=== PATIENT | male | born 1955 | race Caucasian/White ===

== ENCOUNTER 2021-12-27 12:29 | Emergency (ER) | payer MEDICARE, OTHER, SELFPAY ==
--- NOTE | ~2021-12-27 | XR_ITS ---
EXAMINATION: XR foot LT min 3V DATE: 12/27/2021 12:52 INDICATION: Left foot pain and swelling. Fall. TECHNIQUE: 4 views of left foot were obtained. COMPARISON: None. FINDINGS: There is dorsiflexion of the metatarsophalangeal joints and flexion of many of the interpha langeal joints. No fracture. There is mild osteoarthritis of first metatarsophalangeal joint and some of the interphalangeal joints. There is an enthesophyte at plantar aspect of calcaneal tuberosity. IMPRESSION: 1. Mild polyarticular osteoarthritis. Reviewed, dictated and finalized at location A.
[2021-12-27 12:41] VITALS: BP 140/67; PULSE 76; RESP 18; TEMP 36.8; O2SAT 100
--- NOTE | 2021-12-27 13:01 | ED.LOWEXIN ---
HPI - Extremity Injury (Lower) General Stated Complaint: Lt Foot Pain Time Seen by Provider: 12/27/21 13:03 Source: patient and RN notes reviewed Mode of arrival: ambulatory Limitations: no limitations History of Present Illness HPI Narrative: 66-year-old female presents with concern for injury to his left foot. He reports this morning around 4:00 a.m. he tripped over something in his bathroom rolling his left ankle on hurting his left foot. He reports swelling to the dorsal foot. He reports pain is worsened with weight-bearing. He denies decreased sensation, strength, range of motion of ankle, foot, digits. MD complaint: foot injury Related Data Home Medications Medication Instructions Recorded Confirmed aspirin 81 mg chewable tablet 81 mg PO DAILY 12/27/21 12/27/21 empagliflozin 10 mg tablet 10 mg DAILY 12/27/21 12/27/21 (Jardiance) metformin 500 mg tablet 500 mg BID 12/27/21 12/27/21 metoprolol succinate 25 mg 25 mg PO DAILY 12/27/21 12/27/21 tablet,extended release 24 hr rosuvastatin 40 mg tablet 40 mg DAILY 12/27/21 12/27/21 Allergies Allergy/AdvReac Type Severity Reaction Status Date / Time Sulfa (Sulfonamide Allergy Fever Verified 12/27/21 13:02 Antibiotics) Review of Systems Review of Systems: CONSTITUTIONAL: Denies malaise, chills, sweats, or fever. SKIN: Denies rash or itching, open skin, laceration, abrasion, redness, warmth MUSCULOSKELETAL: Reports left foot pain and swelling NEUROLOGIC: Denies numbness, weakness All systems reviewed & are unremarkable except as noted in HPI and below PMFSH Comments At time of signature, agree with nursing past medical, surgical, social and family history. There is no relevant family history pertinent to the presenting complaint Exam Narrative: GENERAL: Well-appearing, well-nourished, and in no acute distress. HEAD: Normocephalic, atraumatic. EYES: PERRLA, conjunctivae clear NECK: Supple. CHEST: Speaks in full sentences. No respiratory distress. HEART: Regular rate and rhythm. Normal and equal peripheral pulses. EXTREMITIES: left ankle, foot, digits have normal strength and sensation, normal range of motion. moderate lateral dorsal edema without erythema or ecchymosis. 5/5 strength with ankle ended flexion and extension. Normal sensation with sensitivity to light touch and pain. No point tenderness. No open wounds, no skin tenting, no devitalized tissue or atrophy, no trophic changes, alignment normal, nearby joints and structures intact. Distal pulses palpable and equal bilaterally, skin warm, dry, pink. Capillary refill less than 3 seconds. SKIN: Warm, dry, no rash. NEURO: Alert and oriented x3. PSYCH: Normal mood and affect Course Course Emergency Course: Patient is aware of diagnosis, understands and agrees to treatment plan. Anticipatory guidance given. Patient agrees to follow-up as directed and is aware of reasons to seek care at the emergency department. Portions of this record may have been created with voice recognition software Level of Care: Express Care Visit Vital Signs Vital signs: Vital Signs Temperature 98.2 F 12/27/21 12:41 Pulse Rate 76 12/27/21 12:41 Respiratory Rate 18 12/27/21 12:41 Blood Pressure 140/67 12/27/21 12:41 Pulse Oximetry 100 12/27/21 12:41 Oxygen Delivery Room Air 12/27/21 12:41 Temperature 98.2 F 12/27/21 12:41 Pulse Rate 76 12/27/21 12:41 Respiratory Rate 18 12/27/21 12:41 Blood Pressure 140/67 12/27/21 12:41 Pulse Oximetry 100 12/27/21 12:41 Oxygen Delivery Room Air 12/27/21 12:41 Reviewed. MDM - Extremity Injury (Lower) MDM Narrative Medical decision making narrative: Patients injury and pain is consistent with musculoskeletal etiology. No signs of neurological or vascular compromise on exam. Compartments and tissues are soft without signs of compartment syndrome. Pain is felt appropriate for further evaluation on an outpatient basis. Imaging Data My im
== END 2021-12-27 13:13 | disposition home or self-care (01) ==
PROVIDERS: Emergency Provider Nurse Practitioner; PCP Internal Medicine
DX: S93.602A Unspecified sprain of left foot, initial encounter (principal); X50.9XXA Other and unspecified overexertion or strenuous movements or postures, initial encounter; E11.9 Type 2 diabetes mellitus without complications; Z79.82 Long term (current) use of aspirin; Z95.1 Presence of aortocoronary bypass graft; Z79.84 Long term (current) use of oral hypoglycemic drugs
CPT/HCPCS: 73630; 99213; G0463

== ENCOUNTER 2023-01-26 11:22 | Emergency (ER) | payer MEDICARE, OTHER, SELFPAY ==
[2023-01-26 12:28] VITALS: BP 130/64; PULSE 81; RESP 16; TEMP 35.9; O2SAT 98
--- NOTE | 2023-01-26 12:45 | ED.GENADULT ---
HPI - General Adult General Chief complaint: Upper Respiratory Infection Stated complaint: cough,congestion Time Seen by Provider: 01/26/23 12:45 Source: patient Mode of arrival: ambulatory Limitations: no limitations History of Present Illness HPI narrative: 59-year-old male patient presents to [facility] with complaints of cough congestion past 5 days. Denies fevers, body aches or chills. Denies any ear pain or sore throat. Denies chest pain or shortness of breath. Denies abdominal pain, nausea, vomiting or diarrhea. Denies any history of lung disease but states has had a cardiac catheterization in the past. Patient states he came in today to be assessed because he was concerned his symptoms have been going on for 5 days Related Data Home Medications Medication Instructions Recorded Confirmed aspirin 81 mg chewable tablet 81 mg PO DAILY 12/27/21 01/26/23 metformin 500 mg tablet 1,000 mg BID 12/27/21 01/26/23 metoprolol succinate 25 mg 25 mg PO DAILY 12/27/21 01/26/23 tablet,extended release 24 hr rosuvastatin 40 mg tablet 40 mg DAILY 12/27/21 01/26/23 dapagliflozin propanediol 10 mg 10 mg PO DAILY 01/26/23 01/26/23 tablet (Farxiga) nitroglycerin 0.4 mg sublingual 0.4 mg sublingual PRN PRN Chest 01/26/23 01/26/23 tablet Pain Allergies Allergy/AdvReac Type Severity Reaction Status Date / Time Sulfa (Sulfonamide AdvReac Intermediate Fever Verified 01/26/23 12:33 Antibiotics) Review of Systems Review of Systems: CONSTITUTIONAL: Denies fever, chills, or sweats. EYES: Denies visual changes, redness, or discharge. ENT: positiverhinorrhea, congestion, denies sore throat, or otalgia. CARDIOVASCULAR: Denies chest pain, palpitations, or edema. RESPIRATORY: positive cough or dyspnea. GASTROINTESTINAL: Denies abdominal pain, nausea, vomiting, or diarrhea. GENITOURINARY: Denies dysuria or hematuria. SKIN: Denies rash or itching. MUSCULOSKELETAL: Denies back pain, joint pain, or myalgia. NEUROLOGIC: positive headache, denies numbness, or weakness. PSYCHIATRIC: Denies anxiety or depression. [facility] Past Medical History Medical History (Updated 01/26/23 @ 12:59 by MARY Winslow) Hypertension Surgical History Surgical History (Updated 01/26/23 @ 12:59 by MARY Winslow) History of heart bypass surgery Exam Narrative: GENERAL: Well-appearing, well-nourished, and in no acute distress. HEAD: Normocephalic, atraumatic. EYES: PERRLA and EOMI. ENT: Nares with erythema edema noted bilaterally, no rhinorrhea or epistaxis. Mucous membranes moist. bilateral TMs are clear no erythema foreign bodies the canal. Posterior pharynx with no erythema or exudates present. NECK: Supple. No lymphadenopathy CHEST: Clear to auscultation. No respiratory distress. HEART: Regular rate and rhythm. No murmur heard. Normal peripheral pulses. ABDOMEN: Soft, nontender, nondistended, normal active bowel sounds. EXTREMITIES: Normal range of motion. No edema. SKIN: Warm, dry, no rash. NEURO: No focal deficits. Alert and oriented x3. Course Course Emergency Course: Portions of this chart was completed with voice recognition software Level of Care: Express Care Visit Vital Signs Vital signs: Vital Signs Temperature 35.9 C L 01/26/23 12:28 Pulse Rate 81 01/26/23 12:28 Respiratory Rate 16 01/26/23 12:28 Blood Pressure 130/64 01/26/23 12:28 Pulse Oximetry 98 01/26/23 12:28 Oxygen Delivery Room Air 01/26/23 12:28 Temperature 35.9 C L 01/26/23 12:28 Pulse Rate 81 01/26/23 12:28 Respiratory Rate 16 01/26/23 12:28 Blood Pressure 130/64 01/26/23 12:28 Pulse Oximetry 98 01/26/23 12:28 Oxygen Delivery Room Air 01/26/23 12:28 Medical Decision Making MDM Narrative Medical decision making narrative: Discussed with patient that I do believe he most likely has a mild viral URI. Discussed with patient that he has already tested himself at home for COVID a
== END 2023-01-26 13:00 | disposition home or self-care (01) ==
PROVIDERS: Emergency Provider Nurse Practitioner Family; PCP Internal Medicine
DX: J06.9 Acute upper respiratory infection, unspecified (principal); I10 Essential (primary) hypertension; Z79.82 Long term (current) use of aspirin
CPT/HCPCS: 99213; G0463

== ENCOUNTER 2025-02-08 00:55 | Day surgery (SDC) | payer MEDICARE, OTHER, SELFPAY ==
[2025-01-20 10:02] VITALS: BMI 34.4
--- OUTSIDE RECORDS SUMMARY | 2025-02-08 00:58 | XMS_ITS | Encounter Summary ---
Author Organization [facility] Address [address] [place] [address] Care Team Providers Care Patrol Police Lieutenant Name Role Phone Osmin Mares MD Primary Care Provider [phone] Encounter Details Date Type Department Care Team (Latest Contact Info) Description 02/22/2021 Calypso Wirelesst Message Enc [facility] Medical [facility] - [address] [place] [address] Sterling Jauregui MD Tadalafil 5 mg prescription Social History Tobacco Use Types Packs/Day Years Used Date Smoking Tobacco: Former Pipe Q uit: 1981 Smokeless Tobacco: Never Comments:counseled by Dr Lyn macdonald Alcohol Use Standard Drinks/Week Comments Yes 1 (1 standard drink = 0.6 oz pur e alcohol) Overall Financial Resource Strain (CARDIA) Answe r Date Recorded How hard is it for you to pa y for the very basics like food, housing, medical care, and heating? Not very hard 09/20/2020 PHQ-2 Answer Date Recorded PHQ-2 Score - If the patient scores above 3, please move on to questions 3-9 0 02/21/2021 PRAPARE - Transportation Answer Date Re corded In the past 12 months, has l ack of transportation kept you from medical appointments or from getting medications? No 09/07 In the past 12 months, has l ack of transportation kept you from meetings, work, or from getting things needed for daily living? No 09/20/2020 Sex and Gender Information Value Date Recorded Sex Assigned at Male 07/21/2024 9:48 AM CDT Legal Sex Male 5:03 PM CDT Gender Identity Male 07/21/2024 9:48 AM CDT Sexual Orientation Straight 07/21/2024 9: 48 AM CDT COVID-19 Exposure Response Date Recorded In the last month, have you been in contact with someone who was confirmed or suspected to have Coronavirus / COVID-19? No / Unsure 02/20/2021 12:57 PM DIAMOND SANDER documented as of this encounter Functional Status * RETIRED Are you deaf or do you have serious difficulty hearing Answer Date of Assessment Author Status No 09/20/2020 3:27 PM CDT Activ e * RETIRED Are you blind or do you have serious difficulty seeing, even when wearing glasses? Answer Date of Assessment Author Status No 09/20/2020 3:27 PM CDT Activ e * Do you have serious difficulty walking or climbing stairs? Answer Date of Assessment Author Status No 09/20/2020 3:27 PM CDT Matt Castañeda RN Active * Do you have difficulty dressing or bathing? Answer Date of Assessment Author Status No 09/20/2020 3:27 PM CDT Matt Castañeda RN Active * Because of a physical, mental, or emotional condition, do you have difficulty doing errands alone such as visiting a doctor's office or shopping? Answer Date of Assessment Author Status No 09/20/2020 3:27 PM LIBBYT Matt Castañeda RN Active documented as of this encounter Mental Status * Because of a physical, mental, or emotional condition, do you have serious difficulty concentrating, remembering, or making decisions? Answer Entry Date Author Status No 09/20/2020 3:27 PM CDT Matt Castañeda RN Active documented in this encounter Plan of Treatment Upcoming Encounters Date Type Department Care Team (Late st Contact Info) Description 07/19/2025 10:20 AM CDT Office Visit [facility] Medical Group Multispecialty Care - [place] [address] [address] [address] [place] [address] [place] [address] [place] [address] [address] [place] [address] documented as of this encounter Visit Diagnoses Not on filedocumented in this encounter Additional Health Concerns Assessment Noted Time PHQ-9 Depression Total Score: 0 02/22/20 10:05 AM DIAMOND SANDER documented as of this encounter Care Teams Patrol Police Lieutenant Relationship Specialty Start Date End Date Osmin Mares MD [address] [address] PCP - General INTERNAL MEDICINE 10/30/20 documented as of this encounter
--- OUTSIDE RECORDS SUMMARY | 2025-02-08 00:58 | XMS_ITS | Encounter Summary ---
Author Organization [facility] Address [address] [place] [address] Care Team Providers Care Thin Film Technician Name Role Phone Osmin Mares MD Primary Care Provider [phone] Encounter Details Date Type Department Care Team (Latest Contact Info) Description 12/09/2024 Ping4t Message Enc [facility] Medical Group Multispecialty Care - [place] [address] [address] [address] [place] [address] Osmin Mares MD [address] [place] [address] [address] [place] [address] Flu Shot Received Social History Tobacco Use Types Packs/Day Years Used Date Smoking Tobacco: Former Pipe Q uit: 03/10/1981 Smokeless Tobacco: Never Comments:Nominal use for tas te not inhaled; counseled by Dr Mares. Alcohol Use Standard Drinks/Week Comments Not Currently 1 (1 standard drink = 0.6 oz pur e alcohol) Overall Financial Resource Strain (CARDIA) Answe r Date Recorded How hard is it for you to pa y for the very basics like food, housing, medical care, and heating? Not very hard 09/20/2020 PHQ-2 Answer Date Recorded Patient Health Questionnaire-2 Score 0 07/21/2024 PRAPARE - Transportation Answer Date Re corded [...] Orientation Straight 07/21/2024 9: 48 AM CDT documented as of this encounter Functional Status [...] 3:27 PM LIBBYT Matt Castañeda RN Active * Because of a physical, mental, or emotional condition, do you have difficulty doing errands alone such as visiting a doctor's office or shopping? Answer Date of Assessment Author Status No 09/20/2020 3:27 PM CDT Caitlin Castañeda RN Active documented as of this encounter Mental Status * Because of a physical, mental, or emotional condition, do you have serious difficulty concentrating, remembering, or making decisions? Answer Entry Date Author Status No 09/20/2020 3:27 PM LIBBYT Matt Castañeda RN Active documented in this encounter Plan of Treatment Upcoming Encounters Date Type Department Care Team (Late st Contact Info) Description 07/19/2025 10:20 AM CDT Office Visit [facility] Medical Group Multispecialty Care - [place] [address] [address] [address] [place] [address] Osmin Mares MD [address] [place] [address] documented as of this encounter Visit Diagnoses Not on filedocumented in this encounter Additional Health Concerns Assessment Noted Time PHQ-9 Depression Total Score: 3 07/22/19 25 10:14 AM CDT documented as of this encounter Care Teams Thin Film Technician Relationship Specialty Start Date End Date Osmin Mares MD [address] [address] PCP - General INTERNAL MEDICINE 10/30/20 documented as of this encounter
--- OUTSIDE RECORDS SUMMARY | 2025-02-08 00:58 | XMS_ITS | Encounter Summary ---
Author Organization [facility] Address [address] [place] [address] Care Team Providers Care Collator Name Role Phone Magan Canada MD Primary Care Provider [phone] Osmin Mares MD Primary Care Provider [phone] Encounter Details Date Type Department Care Team (Late st Contact Info) Description 09/07/2020 Replise Message Enc [facility] [address] David Bennett MD,PHD RE: Medication Questions Social History Tobacco Use Types Packs/Day Years Used Date Smoking Tobacco: Former Pipe Q uit: 1982 Smokeless Tobacco: Never Alcohol Use Standard Drinks/Week Comments Yes 1 (1 standard drink = 0.6 oz pur e alcohol) Sex and Gender Information Value Date Recorded [...] have Coronavirus / COVID-19? No / Unsure 09/05/2020 1:02 PM CDT documented as of this encounter Progress Notes * David Bennett MD,PHD - 09/08/2020 10:54 AM CDT Stop the pioglitazone and start Jardiance at 10 mg daily Agree with holding morning doses metformin prior cath * Katy Marinelli RN - 09/07/2020 1:54 PM CDT Please advise. I have a call out to the PCP and we are working on trying to get the actos switched to a different medication. documented in this encounter Plan of Treatment Upcoming Encounters Date Type Department Care Team (Late st Contact Info) Description 07/19/2025 10:20 AM CDT Office Visit [facility] Medical Group Multispecialty Care - [address] [address] [address] [address] [place] [address] Osmin Mares MD [address] [place] [id number] documented as of this encounter Visit Diagnoses Not on filedocumented in this encounter Care Teams Collator Relationship Specialty Start Date End Date Magan Canada MD [facility] [address] [phone] PCP - General INTERNAL MEDICINE 08/29/20 10/29/20 Osmin Mares MD [address] [place] [address] PCP - General INTERNAL MEDICINE 10/30/20 documented as of this encounter
--- OUTSIDE RECORDS SUMMARY | 2025-02-08 00:58 | XMS_ITS | Encounter Summary ---
Author Organization [facility] Address [address] [place] [address] Care Team Providers Care Retail Shift Supervisor Name Role Phone Osmin Mares MD Primary Care Provider [phone] Encounter Details Date Type Department Care Team (Latest Contact Info) Description 10/01/2024 MyChart Message Enc [facility] Medical Group Multispecialty Care - [place] [address] [address] [address] [place] [address] Osmin Mares MD [address] [place] [address] [address] [place] [address] Recent Issues 1 of 2 Social History Tobacco Use Types Packs/Day Years [...] Description 07/19/2025 10:20 AM CDT Office Visit [facility] Medical [facility] Multispecialty Care - [place] [address] [address] [address] [place] [address] Osmin Mares MD [address] [place] [address] [address] [place] [address] documented as of this encounter Visit Diagnoses Not on filedocumented in this encounter Additional Health Concerns Assessment Noted Time PHQ-9 Depression Total Score: 3 07/22/19 25 10:14 AM CDT documented as of this encounter Care Teams Retail Shift Supervisor Relationship Specialty Start Date End Date Osmin Mares MD [address] [address] PCP - General INTERNAL MEDICINE 10/30/20 documented as of this encounter
--- OUTSIDE RECORDS SUMMARY | 2025-02-08 00:58 | XMS_ITS | Encounter Summary ---
Author Organization [facility] Address [address] [place] [address] Care Team Providers Care Operations Manager Assistant Name Role Phone Osmin Mares MD Primary Care Provider [phone] Encounter Details Date Type Department Care Team (Late st Contact Info) Description 01/30/[address] [employer] Message Enc [facility] Medical Group Multispecialty Care - [place] [address] [address] [address] [place] [address] Osmin Mares MD [address] [place] [address] [address] [place] [address] Jardiance Social History Tobacco Use Types Packs/Day Years [...] please move on to questions 3-9 0 2021 PRAPARE - Transportation Answer Date Re corded [...] have Coronavirus / COVID-19? No / Unsure 01/29/2021 6:38 PM KARATE INSTRUCTOR documented as of this encounter Functional Status [...] Description 07/19/2025 10:20 AM CDT Office Visit [facility] Medical Group Multispecialty Care - [address] [address] [address] [place] [address] Osmin Mares MD [address] [place] [address] documented as of this encounter Visit Diagnoses Not on filedocumented in this encounter Additional Health Concerns Assessment Noted Time PHQ-9 Depression Total Score: 0 01/20/20 21 1:12 PM KARATE INSTRUCTOR documented as of this encounter Care Teams Operations Manager Assistant Relationship Specialty Start Date End Date Osmin Mares MD [address] [address] PCP - General INTERNAL MEDICINE 10/30/20 documented as of this encounter
--- OUTSIDE RECORDS SUMMARY | 2025-02-08 00:58 | XMS_ITS | Encounter Summary ---
Author Organization [facility] Address [address] [place] [address] Care Team Providers Care Avionics Supervisor Name Role Phone Osmin Mares MD Primary Care Provider [phone] Encounter Details Date Type Department Care Team (Late st Contact Info) Description 08/10/2024 MyChart Message Enc [facility] Medical Group Multispecialty Care - [place] [address] [address] [address] [place] [address] Osmin Mares MD [address] [place] [address] [address] [place] [address] Vaccinations Social History Tobacco Use Types Packs/Day Years [...] 07/19/2025 10:20 AM CDT Office Visit [facility] Medical Group Multispecialty Care - [place] [address] [address] [address] [place] [address] Osmin Mares MD [address] [place] [address] documented as of this encounter Visit Diagnoses Not on filedocumented in this encounter Additional Health Concerns Assessment Noted Time PHQ-9 Depression Total Score: 3 07/22/19 25 10:14 AM CDT documented as of this encounter Care Teams Avionics Supervisor Relationship Specialty Start Date End Date Osmin Mares MD [address] [address] PCP - General INTERNAL MEDICINE 10/30/20 documented as of this encounter
--- OUTSIDE RECORDS SUMMARY | 2025-02-08 00:58 | XMS_ITS | Encounter Summary ---
Author Organization [facility] Address [address] [place] [address] Care Team Providers Care Application Packaging Specialist Name Role Phone Magan Canada MD Primary Care Provider [phone] Osmin Mares MD Primary Care Provider [phone] Encounter Details Date Type Department Care Team (Late Contact Info) Description 09/14/2020 Abstract [facility] [address] Roger Lui MA Social History Tobacco Use Types Packs/Day Years [...] have Coronavirus / COVID-19? No / Unsure 09/16/2020 12:02 PM CDT documented as of this encounter Plan of Treatment Upcoming Encounters Date Type Department Care Team (Late Contact Info) Description 07/19/2025 10:20 AM CDT Office Visit [facility] Multispecialty Care - [address] [place] [address] Osmin Mares MD [address] [facility] [address] [place] [address] documented as of this encounter Procedures Procedure Name Priority Date/Time Associated Diagnosis Comments COMPREHENSIVE METABOLIC PANEL Routine 08/02/2020 LIPID PANEL Routine 08/02/2020 BASIC METABOLIC PANEL Routine 05/01/2020 COMPREHENSIVE METABOLIC PANEL Routine 02/02/2020 HEMOGLOBIN, GLYCOSYLATED Routine 08/05/2019 LIPID PANEL Routine 06/18/2018 LIPID PANEL Routine 11/13/2017 CBC (OUTSIDE LAB) Routine 09/30/2017 documented in this encounter Results * (ABNORMAL) COMPREHENSIVE METABOLIC PANEL (08/02/2020) SODIUM S/P/B 139 POTASSIUM S/P/B 4.2 CO2 27 CHLORIDE S/P/B 103 GLUCOSE 129 mg/dL CALCIUM S/P/B 9.5 BUN 11 CREATININE S/P/B 0.70 0.7 - 1.3 EGFR AFR. AMER. 145(A) <=90 EGFR NON-AFR. AMER. 120(A) <=90 ALKALINE PHOSPHATASE S/P/B 64 ALT 19 AST 16 BILIRUBIN TOTAL S/P/B 0.60 ALBUMIN S/P/B 4.30 3.5 - 5.0 TOTAL PROTEIN S/P/B 7.0 08/02/2020 us [facility] Abstract LABORATORY Final Result * LIPID PANEL (08/02/2020) CHOLESTEROL 231 HDL 50 TRIGLYCERIDES 120 LDL (CALCULATED) 157 08/02/2020 us Doc [facility] Abstract LABORATORY Final Result * BASIC METABOLIC PANEL (05/01/2020) SODIUM S/P/B Comment:error,deleted 05/01/2020 us [facility] Abstract LABORATORY Edited Resul t - Final * (ABNORMAL) COMPREHENSIVE METABOLIC PANEL (02/02/2020) SODIUM S/P/B 138 POTASSIUM S/P/B 4.3 CO2 26 CHLORIDE S/P/B 101 GLUCOSE 154 mg/dL CALCIUM S/P/B 9.30 BUN 11.0 CREATININE S/P/B 0.70 0.7 - 1.3 EGFR AFR. AMER. 145(A) <=90 EGFR NON-AFR. AMER. 120(A) <=90 ALKALINE PHOSPHATASE S/P/B 69 ALT 18 AST 20 BILIRUBIN TOTAL S/P/B 0.60 ALBUMIN S/P/B 4.50 3.5 - 5.0 TOTAL PROTEIN S/P/B 7.20 02/02/2020 us [employer] [facility] Abstract LABORATORY Final Result * HEMOGLOBIN, GLYCOSYLATED (08/05/2019) HGB A1C 6.80 % 08/05/2019 us [facility] Abstract LABORATORY Edited Resul t - Final * LIPID PANEL (06/18/2018) CHOLESTEROL 121 HDL 47 TRIGLYCERIDES 116 LDL (CALCULATED) 51 06/18/2018 [employer] [facility] Abstract LABORATORY Final Result * LIPID PANEL (11/13/2017) CHOLESTEROL 143 HDL 46 TRIGLYCERIDES 84 LDL (CALCULATED) 80 11/13/2017 us Doc [facility] Abstract LABORATORY Final Result * CBC (OUTSIDE LAB) (09/30/2017) WBC 8.8 HGB 15.0 HCT 44.50 PLT 238 09/30/2017 us Doc [facility] Abstract LAB-OUTSIDE/ABSTRACTED Final Result documented in this encounter Visit Diagnoses Not on filedocumented in this encounter Care Teams Application Packaging Specialist Relationship Specialty Start Date End Date Magan Canada MD [address] [id number] PCP - General INTERNAL MEDICINE 08/29/20 10/29/20 Osmin Mares MD [address] [address] PCP - General INTERNAL MEDICINE 10/30/20 documented as of this encounter
--- OUTSIDE RECORDS SUMMARY | 2025-02-08 00:58 | XMS_ITS | Encounter Summary ---
Author Organization [facility] Address [address] [place] [address] Care Team Providers Care Television Engineering Teacher Name Role Phone Osmin Mares MD Primary Care Provider [phone] Encounter Details Date Type Department Care Team (Latest Contact Info) Description 02/12/2021 Daily Dealyt Message Enc [facility] Medical Group Multispecialty Care - [place] [address] [address] [place] [address] [place] [address] [place] [address] [address] [place] [address] [employer] Ultra [employer] Results Social History Tobacco Use Types Packs/Day Years [...] have Coronavirus / COVID-19? No / Unsure 02/13/2021 11:01 AM COMPLIANCE LEAD documented as of this encounter Functional Status [...] Description 07/19/2025 10:20 AM CDT Office Visit [facility] Multispecialty Care - [place] [address] [address] [place] [address] Osmin Mares MD [address] [place] [address] documented as of this encounter Visit Diagnoses Not on filedocumented in this encounter Additional Health Concerns Assessment Noted Time PHQ-9 Depression Total Score: 0 01/20/20 21 1:12 PM COMPLIANCE LEAD documented as of this encounter Care Teams Television Engineering Teacher Relationship Specialty Start Date End Date Osmin Mares MD [address] [address] PCP - General INTERNAL MEDICINE 10/30/20 documented as of this encounter
--- OUTSIDE RECORDS SUMMARY | 2025-02-08 00:58 | XMS_ITS | Encounter Summary ---
Author Organization [facility] Address [address] [place] [address] Care Team Providers Care Hydraulic Billet Maker Name Role Phone Osmin Mares MD Primary Care Provider [phone] Encounter Details Date Type Department Care Team (Latest Contact Info) Description 01/21/2022 Transpondt Message Enc [facility] [id number] [place] [address] David Bennett MD,PHD Cardiac MRI at [facility] Cancelled Social History Tobacco Use Types Packs/Day Years Used Date Smoking Tobacco: Former Pipe Q uit: 03/10/1981 Smokeless Tobacco: Never Comments:Nominal use for tas te not inhaled Alcohol Use Standard Drinks/Week Comments Yes 1 [...] please move on to questions 3-9 0 08/17/2021 PRAPARE - Transportation Answer Date Re corded [...] PM CDT Matt Castañeda RN Active documented as of this encounter Mental Status * Because of a physical, mental, or emotional condition, do you have serious difficulty concentrating, remembering, or making decisions? Answer Entry Date Author Status No 09/20/2020 3:27 PM LIBBYT Matt Castañeda RN Active documented in this encounter Progress Notes * Katy Marinelli RN - 01/21/2022 11:45 AM CST . ORATE ADMINISTRATOR documented in this encounter Plan of Treatment Upcoming Encounters Date Type Department Care Team (Late st Contact Info) Description 07/19/2025 10:20 AM CDT Office Visit [facility] Medical [facility] Multispecialty Care - [place] [address] [address] [place], [place] [id number] Osmin Mares MD [address] [place] [address] [address] [place], [place] [id number] documented as of this encounter Visit Diagnoses Not on filedocumented in this encounter Additional Health Concerns Assessment Noted Time PHQ-9 Depression Total Score: 0 05/31/19 22 12:27 PM CDT documented as of this encounter Care Teams Hydraulic Billet Maker Relationship Specialty Start Date End Date Osmin Mares MD [address] [address] PCP - General INTERNAL MEDICINE 10/30/20 documented as of this encounter
--- OUTSIDE RECORDS SUMMARY | 2025-02-08 00:58 | XMS_ITS | Encounter Summary ---
Author Organization [facility] Address [address] [place] [address] Care Team Providers Care Cigarette Book Maker Name Role Phone Osmin Mares MD Primary Care Provider [phone] Encounter Details Date Type Department Care Team (Latest Contact Info) Description 01/16/2025 [employer] Message Enc [facility] Medical [facility] Multispecialty Care - [place] [address] [address] [place] [address] Osmin Mares MD [address] [place] [address] [address] [place] [address] Updated Information Covid Vaccination Social History Tobacco Use Types Packs/Day Years [...] PM CDT Matt Castañeda RN Active * Calculated C-SSRS Risk Score (Lifetime/Recent) Answer Date of Assessment Author Status No Risk Indicated 2025 5:59 PM Osmin Chavarria MD Active * Given Suicide Severity Rating Scale (Screener/Recent Self-Report) Question Answer Date of Assessment Author Status 1. Wish to be (Past 1 Month) No 2025 5:59 PM Osmin Chavarria MD Active 2. Non-Specific Active Suicidal Thoughts (Past 1 Month) No 2025 5:59 PM Osmin Chavarria MD Active 6. Suicidal Behavior (Lifetime) No 2025 5:59 PM Osmin Chavarria MD Active documented as of this encounter Mental [...] Description 07/19/2025 10:20 AM CDT Office Visit [facility] Medical [facility] Multispecialty [facility] [place] [address] [address] [place] [address] Osmin Mares MD [address] [place] [address] documented as of this encounter Visit Diagnoses Not on filedocumented in this encounter Additional Health Concerns Assessment Noted Time PHQ-9 Depression Total Score: 3 07/22/19 25 10:14 AM CDT documented as of this encounter Care Teams Cigarette Book Maker Relationship Specialty Start Date End Date Osmin Mares MD [address] [place] [address] PCP - General INTERNAL MEDICINE 10/30/20 documented as of this encounter
--- OUTSIDE RECORDS SUMMARY | 2025-02-08 00:58 | XMS_ITS | Encounter Summary ---
Author Organization [facility] Address [address] [place] [address] Care Team Providers Care Software Performance Engineer Name Role Phone Osmin Mares MD Primary Care Provider [phone] Encounter Details Date Type Department Care Team (Late st Contact Info) Description 02/26/2022 [employer] Message Enc [facility] [address] [place] [address] David Bennett MD,PHD Cardiac MRI Social History Tobacco Use Types Packs/Day Years [...] Exposure Response Date Recorded In the last 10 days, have peg thomson been in contact with someone who was confirmed or suspected to have Coronavirus/COVID-19? No / Unsure 02/26/2022 9:39 AM MACHINE STAPLER documented as of this encounter Functional Status [...] documented in this encounter Progress Notes * David Bennett MD,PHD - 03/12/2022 7:12 PM CST Lets still see the patient to see how he is doing clinically. INE STAPLER * Katy Marinelli RN - 03/12/2022 8:55 AM CST Please advise INE STAPLER * David Bennett MD,PHD - 02/26/2022 2:38 PM CST Try and repeat the scan with 2 mg of lorazepam as needed INE STAPLER * Katy Marinelli RN - 02/26/2022 1:47 PM CST Please advise. INE STAPLER documented in this encounter Plan of Treatment Upcoming Encounters Date Type Department Care Team (Late st Contact Info) Description 07/19/2025 10:20 AM CDT Office Visit [facility] Medical Group Multispecialty [facility] [place] [address] [address] [place] [address] Osmin Mares MD [address] [place] [address] documented as of this encounter Visit Diagnoses Not on filedocumented in this encounter Additional Health Concerns Assessment Noted Time PHQ-9 Depression Total Score: 0 05/31/19 22 12:27 PM CDT documented as of this encounter Care Teams Software Performance Engineer Relationship Specialty Start Date End Date Osmin Mares MD [address] [place] [address] PCP - General INTERNAL MEDICINE 10/30/20 documented as of this encounter
--- OUTSIDE RECORDS SUMMARY | 2025-02-08 00:58 | XMS_ITS | Clinical Summary ---
Author Organization [facility] Address [address] [place] [address] Care Team Providers Care Laboratory Aide Name Role Phone Osmin Mares MD Primary Care Provider [phone] Allergies Active Allergy Reactions Criticality Noted Date Comments Albuterol Sulfate Diarrhea 09/22/2023 Sulfa Antibiotics Nausea and Vomiting 1 Medications aspirin 81 MG chewable tabletIndications: Hx of CABG Chew 1 tablet (81 mg total) by mouth daily. 30 tablet 2 Active nitroglycerin (NITROSTAT) 0.4 MG SL tabletIndications: MCKNIGHT (dyspnea on exertion),Chest discomfort Place 1 tablet (0.4 mg total) under the tongue every 5 (five) minutes as needed for Chest Pain. If using 3rd dose, contact 911 for medical emergency. Maximum of 3 doses. 25 tablet 3 Active ENTRESTO 24-26 MG tablet Take 1 tablet by mouth 2 (two) times daily. 4 Active Coenzyme Q10 (COQ-10) 100 MG Cap 1 Active calcium carbonate (TUMS) 500 MG chewable tablet 1 tablet (500 mg total). 4 Active rosuvastatin (CRESTOR) 20 MG tabletIndications: Coronary artery disease involving [place] coronary artery of [place] heart with other form of angina pectoris,Mixed hyperlipidemia Take 1 tablet (20 mg total) by mouth nightly at bedtime. at bedtime 90 tablet 1 5 Active metoprolol succinate ER (TOPROL-XL) 25 MG 24 hr tabletIndications: Coronary artery disease involving [place] coronary artery of [place] heart with other form of angina pectoris,Hx of CABG Take 1 tablet (25 mg total) by mouth daily. 90 tablet 1 5 Active evolocumab (REPATHA) 140 MG/ML injection (SYRINGE)Indicatio ns:Drug therapy Inject 1 mL (140 mg total) into the skin every 14 (fourteen) days. 2 mL 11 5 Active metFORMIN (GLUCOPHAGE) 500 MG tabletIndications: Type 2 diabetes mellitus with other circulatory complications (CMS/HCC HHS/HCC) Take 2 tablets (1,000 mg total) by mouth 2 (two) times daily with meals. 360 tablet 1 5 Active dapagliflozin (FARXIGA) 10 MG tabletIndications: Type 2 diabetes mellitus with other circulatory complications (CMS/HCC HHS/HCC) Take 1 tablet (10 mg total) by mouth daily. 90 tablet 1 5 Active rosuvastatin (CRESTOR) 40 MG tabletIndications: Coronary artery disease involving [place] coronary artery of [place] heart with other form of angina pectoris,Mixed hyperlipidemia Take 1 tablet (40 mg total) by mouth nightly at bedtime. at bedtime 90 tablet 1 5 01/20/20 25 Discontin ued(Reord er) metoprolol succinate ER (TOPROL-XL) 25 MG 24 hr tabletIndications: Coronary artery disease involving [place] coronary artery of [place] heart with other form of angina pectoris,Hx of CABG Take 1 tablet (25 mg total) by mouth daily. 90 tablet 1 5 01/20/20 25 Discontin ued(Reord er) metFORMIN (GLUCOPHAGE) 500 MG tabletIndications: Type 2 diabetes mellitus with other circulatory complications (CMS/HCC HHS/HCC) Take 2 tablets (1,000 mg total) by mouth 2 (two) times daily with meals. 360 tablet 1 5 01/20/20 25 Discontin ued(Reord er) FARXIGA 10 MG tabletIndications: Type 2 diabetes mellitus with other circulatory complications (CMS/HCC HHS/HCC) TAKE 1 TABLET BY MOUTH DAILY 90 tablet 1 5 01/20/20 25 Discontin ued(Reord er) Active Problems Problem Noted Date Diagnosed Date Morbid (severe) obesity due to excess calories 0 11/19/2022 Tachycardia 07/22/2021 Chest discomfort 07/22/2021 Anemia, unspecified type 07/22/2021 MCKNIGHT (dyspnea on exertion) 07/22/2021 Nephrolithiasis 07/22/2021 S/P CABG (coronary artery bypass graft) 10/31/19 Mixed hyperlipidemia 10/30/2020 Type 2 diabetes mellitus wit h other circulatory complications 10/30/2020 JUJU (obstructive sleep apnea) 10/30/2020 Class 1 obesity due to exces s calories without serious comorbidity in adult 10/30/2020 Coronary artery disease invo lving [place] coronary artery of [place] heart with other form of angina pectoris 09/20/2020 Encounters Date Type Department Care Team Description 01/31/2025 Telephone [place] [address] [place] [address] [place] [address] Osmin Mares MD Referral 01/31/2025 MyChart Message Enc [place] [address] [place] [address] Osmin Mares MD Endocrinology Referral 01/20/2025 11:10 AM DRIVING TEACHER - 01/20/2025 11:59 PM DRIVING TEACHER Hospital Encounter [facility] [address] [place] [address] Osmin Mares MD Discharge Disposition: Home or Self Care (Routine Discharge) 01/20/2025 Travel 01/20/2025 MyChart Message Enc [place] [address] [place] [address] Osmin Mares MD My Chart Medical and Family History 2025 10:20 AM DRIVING TEACHER Office Visit [place] [address] [place] [address] [place] [address] Osmin Mares MD Follow Up; Coronary Artery Disease; Diabetes; Hypertension; Hyperlipidemia; Obstructive Sleep Apnea ; Obesity 2025 MyChart Message Enc [place] [address] [place] [address] Osmin Mares MD Collator and Urologist Information [facility]25 [facility]phone [facility] [address] [place] [address] Osmin Mares MD Follow Up Call 2025 Travel 01/16/2025 MyChart Message Enc [facility] [address] [facility] [address] [place] [address] Osmin Mares MD Updated Information Covid Vaccination 12/10/2024 MyChart Message Enc [place] [address] [facility] [address] [place] [address] Osmin Mares MD Colonoscopy Scheduling 12/09/2024 MyChart Message Enc [place] [address] [facility] [address] [place] [address] Osmin Mares MD Flu Shot Received 11/11/2024 10:00 AM CDT Laboratory Only [address] [address] Guillermo Sykes MD 11/11/2024 Travel 11/10/2024 Telephone [facility] [address] [facility], [address] [place] [phone] Kavon Valerio MD Appointment Request from Last 3 Months Immunizations Immunization Administration Dates Next Due Abrysvo Respiratory Syncytia l Virus (RSV) 0.5 mL, PF 08/02/2023 Dtap (Generic) 04/18/2014 Fluad influenza vaccine, Tim drivalent (aIIV4), Inactivated, adjuvanted, preservative free, 0.5 mL,IM use 01/08/2023 Flucelvax 2 YRS+ (Multi-Dose Vial) 01/28/2018 Fluzone High Dose - >Age 65 (Prefilled Syringe) 12/16/2020 Influenza Adult (Generic) 12/08/2024,,12/16/2020,2019,12/02/2018,01/28/2018 MODERNA COVID-19 BIVALENT (1 2+), MRNA, LNP-S, PF 12/23/2024 PFIZER COVID-19 (NGO CAP), MRNA, LNP-S, PF, 30 MCG/0.3 ML PAM-SUCROSE, IM 06/29/2021 PFIZER COVID-19 (ORIGINAL FORMULATION, PURPLE CAP) mRNA, LNP-S, PF, 30 MCG/0.3 ML DOSE 07/21/2024,12/04/2020,04/28/2020,2020 PFIZER COVID-19 BIVALENT (12 +) mRNA, LNP-S, PF, 30 MCG/0.3 ML DOSE 12/26/2023,07/11/2023,12/14/2022 Pneumococcal (Prevnar 20) 06/02/2022 Pneumovax 02/02/2020 Tdap (Generic) 08/10/2024,04/18/2014 Family History Medical History Relation Comments Cancer Father intestinal cancer Father Cancer Mother intestinal cancer Mother Relation Status Comments Brother 1 (Age 56) Brother 2 Alive Brother 3 Alive Father (Age 71) Maternal Grandfather (Age 74) Maternal Grandmother (Age 100) Mother (Age 58) Paternal Grandfather (Age 45) Paternal Grandmother (Age 70) Sister 1 Alive Sister 2 Alive Sister 3 Alive Sister 4 Alive Sister 5 Alive Social History Tobacco Use Types Packs/Day Years Used Date Smoking Tobacco: Never Smokeless Tobacco: Never Tobacco Cessation:Counseling Given: Yes Comments:Nominal use for taste not inhaled; counseled by Dr Mares. Alcohol Use Standard Drinks/Week Comments Yes 1 (1 standard drink = 0.6 oz pur e alcohol) Irregular consumption Overall Financial Resource Strain (CARDIA) Answe r [...] Orientation Straight 07/21/2024 9: 48 AM CDT Last Filed Vital Signs Vital Sign Reading Time Taken Comments Blood Pressure 102/62 2025 10:04 AM DRIVING TEACHER Pulse 71 2025 10:04 AM DRIVING TEACHER Temperature 36.4 C (97.5 F) 2025 10:04 AM DRIVING TEACHER Respiratory Rate 18 2025 10:0 4 AM DRIVING TEACHER Oxygen Saturation 97% 2025 10: 04 AM DRIVING TEACHER Inhaled Oxygen Concentration - - Weight 111.9 kg (246 lb 9.6 oz) 025 10:04 AM DRIVING TEACHER Height 177.8 cm (5' 10) 2025 10: 04 AM DRIVING TEACHER Body Mass Index 35.38 2025 10:04 AM DRIVING TEACHER Plan of Treatment Upcoming Encounters Date Type Department Care Team (Late st Contact Info) Description 07/19/2025 10:20 AM CDT Office Visit [facility] - [place] [address] [address] [place] [address] Osmin Mares MD [address] [place] [address] Health Maintenance Due Date Last Done Comments Kidney Health Evaluation 1955 COVID-19 Vaccine ( season) 2025 12/23/2024, 07/21/2024, 12/26/2023, Additional history exists Annual Medicare Wellness Visit 06/02/2025 Postponed from 2019 (Patient Refused) Hemoglobin A1C 07/20/2025 01/20/2025, 04/2024, 01/14/2024, Additional history exists Zoster Vaccines (1 of 2) 07/21/2025 Pos tponed from 01/20/2004 (Patient Refused) Lipid Panel 01/20/2026 01/20/2025, 06/2024, 08/09/2024, Additional history exists Diabetes: Retinopathy Eye Exam 08/24/2026 08/24/2024, 08/21/2023, 08/02/2021, Additional history exists Colorectal Cancer Screening Colonoscopy (10 Years) 04/14/2029 04/14/2019 DTaP, Tdap and Td Vaccines (4 - Td or Tdap) 08/10/2034 08/10/2024, 04/18/2014, 04/18/2014 Pneumococcal Vaccine: 50+ Years Completed 06/02/2022, 02/02/2020 Hepatitis C Completed 11/20/2022, 10/30/2020 RSV Immunization or 60+ Years Completed 08/02/2023 PHQ-2 (Physician [place]) Completed 07/21/2024 AAA SCREENING Completed 10/04/2024, 04/11, 02/12/2021, Additional history exists Influenza Adult Completed 12/08/2024, 11/09, 01/08/2023, Additional history exists Hepatitis A Vaccines Aged Out No long er eligible based on patient's age to complete this topic Meningococcal B Vaccine Aged Out No l onger eligible based on patient's age to complete this topic Meningococcal Vaccine Aged Out No alessia shireen eligible based on patient's age to complete this topic RSV Immunizations Under 20 Months Aged Out No longer eligible based on patient's age to complete this topic Medical Devices Implanted Type Area Resort Host Device Identifier Shelf Expiration Date Model / Serial / Lot Suture Sternotomy Kit - [id number] Implanted:Qty: 1 on 09/21/2020 by Magan Julien RNFA at [facility] [employer] Wire N/A: Stern[employer] 08/08/2024 [id number] / / [id number] Description:5 wires used fro m package Wire Sut 18in Myowr2 7;.5 Rand; Ccs-1 Mfil; Cnv - [id number] Implanted:Qty: 2 on 09/21/2020 by Magan Julien RNFA at [facility] [employer] Wire N/A: [employer] 04/10/2025 [id number] / / [id number] Description:4 wires used fro m package Procedures Procedure Name Priority Date/Time Associated Diagnosis Comments URINALYSIS MICRO ONLY Routine 01/20/2025 11:35 AM DRIVING TEACHER URINALYSIS Routine 01/20/2025 11:35 AM DRIVING TEACHER General medical exam HEMOGLOBIN, GLYCOSYLATED Routine 01/20/2025 11:16 AM DRIVING TEACHER Drug therapy LIPID PANEL Routine 01/20/2025 11:16 AM DRIVING TEACHER Drug therapy COMPREHENSIVE METABOLIC PANEL Routine 01/20/2025 11:16 AM DRIVING TEACHER Drug therapy HC CBC AUTO W/AUTO DIFF Routine 01/20/2025 11:16 AM DRIVING TEACHER Drug therapy TSH W/REFLEX Routine 01/20/2025 11:16 AM DRIVING TEACHER Drug therapy THYROXINE, FREE (FT4) Routine 01/20/2025 11:16 AM DRIVING TEACHER Drug therapy FREE T3 Routine 01/20/2025 11:16 AM DRIVING TEACHER Drug therapy HC HEALTH [facility] LIPID W/CALC LDL Routine 11/11/2024 10:[address] ABD+PEL KIDNEY STONE FRED 10/04/2024 12:32 PM CDT Hematuria, unspecified type DIABETIC RETINOPATHY EXAM (NEGATIVE)(SCAN ORDER) Routine 08/24/2024 HEPATITIS C ANTIBODY Routine 11/20/2022 9:27 AM CDT Type 2 diabetes mellitus with other circulatory complications COLONOSCOPY GENERIC (SCAN ORDER) 04/14/2019 from Last 3 Months or Most Recently Relevant to Health Maintenance Results * URINALYSIS MICRO ONLY (01/20/2025 11:35 AM DRIVING TEACHER) WBC/HPF NONE SEEN 0 - 5 /HPF 01/20/2025 11:49 AM [facility] RBC/HPF NONE SEEN 0 - 5 /HPF 01/20/2025 11:49 AM [facility] EPI/HPF NONE SEEN /HPF 01/20/2025 11:49 AM [facility] 01/20/2025 11:3 5 AM DRIVING TEACHER Osmin Mares MD URINE ORDERABLES Final Result [facility] [address] [place] [address], [place] [phone] * (ABNORMAL) URINALYSIS (01/20/2025 11:35 AM DRIVING TEACHER) COLOR (U) YELLOW 01/20/2025 11:49 AM [facility] TRANSPARENCY CLEAR 01/20/2025 11:49 AM [facility] SPECIFIC GRAVITY (U) 1.020 1.000 - 1.030 01/20/2025 11:49 AM [facility] U PH 5.5 5.0 - 9.0 01/20/2025 11:49 AM [facility] LEUKOCYTES (U) NEGATIVE NEGATIVE 01/20/2025 11:49 AM [facility] NITRITES NEGATIVE NEGATIVE 01/20/2025 11:49 AM [facility] PROTEIN RANDOM (U) NEGATIVE NEGATIVE 01/20/2025 11:49 AM [facility] GLUCOSE (U) 3+(A) NEGATIVE 01/20/2025 11:49 AM [facility] KETONES MG/DL (U) TRACE(A) NEGATIVE 01/20/2025 11:49 AM DRIVING TEACHER [facility] BILIRUBIN (U) NEGATIVE NEGATIVE 01/20/2025 11:49 AM DRIVING TEACHER [facility] BLOOD (U) TRACE(A) NEGATIVE 01/20/2025 11:49 AM DRIVING TEACHER [facility] URINE URINE SPECIMEN OBTAINED BY CLEAN CATCH PROCEDURE / Unknown 01/20/2025 11:35 AM DRIVING TEACHER us Osmin Mares MD URINE ORDERABLES Final Result Performing Organization Address [facility]/ZIP Co de Phone Number [facility] [address] [place] [address], [place] [phone] * (ABNORMAL) THYROXINE, FREE (FT4) (01/20/2025 11:16 AM DRIVING TEACHER) FREE T4 0.65(L) 0.76 - 1.46 NG/DL 01/20/2025 1:28 PM [facility] 01/20/2025 11:1 6 AM DRIVING TEACHER us Osmin Mares MD LABORATORY Final Result Performing Organization Address [facility]/ZIP Co de Phone Number [facility] [address] [place] [address], [place] [phone] * LIPID PANEL (01/20/2025 11:16 AM DRIVING TEACHER) CHOLESTEROL 110 <200.0 MG/DL 01/20/2025 1:11 PM [facility] TRIGLYCERIDES 87 <150 MG/DL 01/20/2025 1:11 PM [facility] HDL 49 >40.0 MG/DL 01/20/2025 1:11 PM [facility] LDL (CALCULATED) 44 <100 MG/DL 01/21/20 25 1:11 PM [facility] Comment:CALCULATED USING THE FRIEDEWALD EQUATION NON HDL CHOLESTEROL 61 <130 MG/DL 01/20 1:11 PM [facility] CHOL/HDL RATIO 2.2 0.0 - 4.5 01/20/2025 1:11 PM [facility] VLDL CALCULATION 17 5 - 55 MG/DL 01/20/2025 1:11 PM [facility] LIPID INTERPRETATION 01/20/2025 1:11 PM [facility] Comment: NIH CONCENSUS REPORT RECOMMENDATIONS: ADULT CHILD LOW RISK: CHOLESTEROL <200 <170 TRIGLYCERIDE <150 --- HDL >=60 --- LDL <100 <110 BORDERLINE: CHOLESTEROL 200-239 170-199 TRIGLYCERIDE 150-199 --- HDL 40-59 --- LDL 100-159 110-129 HIGH RISK: CHOLESTEROL >=240 >=200 TRIGLYCERIDE >=200 --- HDL <40 --- LDL >=160 >=130 BLOOD VENOUS BLOOD SPECIMEN / Unknown 01/20/2025 11:16 AM DRIVING TEACHER Osmin Mares MD LABORATORY Final Result [facility] [address] [place] [address], * (ABNORMAL) HEMOGLOBIN, GLYCOSYLATED (01/20/2025 11:16 AM DRIVING TEACHER) HGB A1C 6.1(H) <5.7 % 01/20/2025 12:00 PM [facility] Comment: INCREASED RISK OF DIABETES <5.7% NON-DIABETES 5.7-6.4% INCREASED RISK FOR FUTURE DIABETES > OR = 6.5 CONSISTENT WITH DIABETES STANDARDS OF MEDICAL CARE IN DIABETES-2010 DIABETES CARE, 33(SUPP 1): S1-S61,2010 ESTIMATED AVG GLUCOSE 128 mg/dL 01/20/2025 12:00 PM [facility] BLOOD VENOUS BLOOD SPECIMEN / Unknown 01/20/2025 11:16 AM DRIVING TEACHER us Osmin Mares MD LABORATORY Final Result [facility] [address] [place] [address], [place] [phone] * FREE T3 (01/20/2025 11:16 AM DRIVING TEACHER) FREE T3 2.4 2.18 - 3.98 PG/ML 01/20/2025 5:53 PM DRIVING TEACHER [facility] 01/20/2025 11:1 6 AM DRIVING TEACHER us Osmin Mares MD LABORATORY Final Result Performing Organization Address City/[facility]/ZIP Co de Phone Number [facility] [address] [place] [address], [place] [phone] * (ABNORMAL) COMPREHENSIVE METABOLIC PANEL (01/20/2025 11:16 AM DRIVING TEACHER) GLUCOSE 100(H) 70 - 99 MG/DL 01/20/2025 1:11 PM [facility] BUN 14 7 - 18 MG/DL 01/20/2025 1:11 PM [facility] CREATININE S/P/B 0.85 0.7 - 1.3 MG/DL 01/20/2025 1:11 PM [facility] SODIUM S/P/B 139 136 - 145 MMOL/L 01/20/2025 1:11 PM [facility] POTASSIUM S/P/B 4.5 3.5 - 5.1 MMOL/L 01/20/2025 1:11 PM [facility] CHLORIDE S/P/B 104 100 - 108 MMOL/L 01/20/2025 1:11 PM [facility] CO2 26.9 21 - 32 MMOL/L 01/20/2025 1:11 PM [facility] CALCIUM S/P/B 9.0 8.5 - 10.1 MG/DL 01/20/2025 1:11 PM [facility] BILIRUBIN TOTAL S/P/B 0.9 0.2 - 1.2 MG/DL 01/20/2025 1:11 PM [facility] TOTAL PROTEIN S/P/B 7.6 6.4 - 8.2 G/DL 01/20/2025 1:11 PM [facility] ALBUMIN S/P/B 4.1 3.4 - 5.0 G/DL 01/20/2025 1:11 PM [facility] AST 29 15 - 37 U/L 01/20/2025 1:11 PM [facility] ALT 21 16 - 60 U/L 01/20/2025 1:11 PM [facility] ALKALINE PHOSPHATASE S/P/B 66 50 - 136 U/L 01/20/2025 1:11 PM [facility] ANION GAP 8.1 5 - 15 MMOL/L 01/20/2025 1:11 PM [facility] BUN CREATININE RATIO 16.5 6 - 26 01/20/2025 1:11 PM [facility] A/G RATIO 1.2 1.0 - 2.0 RATIO 01/20/2025 1:11 PM [facility] GFR ESTIMATE >90 >90 ML/MIN/1.7 3 M2 01/20/2025 1:11 PM [facility] Comment: NOTE: eGFR is not calculated for patients <18 years of age. This is an estimated GFR calculation using the new CKD EPI creatinine equation without race and so does not require a correction factor for race. This estimated GFR should not be used for calculating drug doses. BLOOD VENOUS BLOOD SPECIMEN / Unknown 01/20/2025 11:16 AM DRIVING TEACHER Osmin Mares MD LABORATORY Final Result [facility] [address] [place] [id number], [place] [phone] * (ABNORMAL) CBC W/DIFF (01/20/2025 11:16 AM DRIVING TEACHER) WBC 7.20 4.4 - 11.0 x10'3/uL 01/20/2025 11:42 AM [facility] RBC 4.99 4.50 - 5.90 x10'6/uL 01/20/2025 11:42 AM [facility] HGB 15.0 14.0 - 17.5 G/DL 01/20/2025 11:42 AM [facility] HCT 45.3 41.5 - 50.4 % 01/20/2025 11:42 AM [facility] MCV 90.8 80.0 - 96.0 FL 01/20/2025 11:42 AM [facility] MCH 30.1 26.5 - 31.4 PG 01/20/2025 11:42 AM [facility] MCHC 33.1 31.9 - 34.8 G/DL 01/20/2025 11:42 AM [facility] RDW 13.8 12.3 - 14.3 % 01/20/2025 11:42 AM [facility] PLT 233 151 - 353 x10'3/uL 01/20/2025 11:42 AM [facility] MPV 10.8 9.7 - 11.9 FL 01/20/2025 11:42 AM [facility] RBC MORPHOLOGY NORMAL 01/20/2025 11:42 AM [facility] PLT MORPH. NORMAL 01/20/2025 11:42 AM [facility] WBC MORPHOLOGY NORMAL 01/20/2025 11:42 AM [facility] LYMPHOCYTES % 37.5 15.8 - 45.0 % 01/20/2025 11:42 AM [facility] NEUTROPHILS % 50.0 42.1 - 71.9 % 01/20/2025 11:42 AM [facility] MONOCYTES % 7.5 5.7 - 12.5 % 01/20/2025 11:42 AM [facility] EOSINOPHILS 3.3 0.0 - 5.6 % 01/20/2025 11:42 AM [facility] BASOPHILS 1.4(H) 0.0 - 1.3 % 01/20/2025 11:42 AM [facility] ABS. NEUTROPHILS 3.60 1.40 - 6.00 x10'3/uL 01/20/2025 11:42 AM [facility] IMMATURE GRANS % 0.3 0.0 - 0.5 % 01/20/2025 11:42 AM [facility] ABS. LYMPHOCYTES 2.70 0.80 - 4.70 x10'3/uL 01/20/2025 11:42 AM [facility] BLOOD VENOUS BLOOD SPECIMEN / Unknown 01/20/2025 11:16 AM DRIVING TEACHER us Osmin Mares MD LABORATORY Final Result [facility] [address] [place] [address], * TSH W/REFLEX (01/20/2025 11:16 AM DRIVING TEACHER) TSH 2.988 0.358 - 3.74 uIU/ML 01/20/2025 1:11 PM DRIVING TEACHER [facility] Comment: HIGH DOSES OF BIOTIN MAY INTERFERE WITH THIS TEST RESULT. CORRELATION TO CLINICAL HISTORY AND PRESENTATION RECOMMENDED. FREE T4 NOT INDICATED 01/20/2025 11:1 6 AM DRIVING TEACHER Osmin Maers MD LABORATORY Final Result [facility] [address] [place] [address], * LIPID PANEL (11/11/2024 10:10 AM CDT) CHOLESTEROL 99 <200.0 MG/DL 11/11/2024 11:44 AM CDT [facility] TRIGLYCERIDES 83 <150 MG/DL 11/11/2024 11:44 AM CDT [facility] HDL 49 >40.0 MG/DL 11/11/2024 11:44 AM CDT [facility] LDL (CALCULATED) 33 <100 MG/DL 11/12/19 25 11:44 AM T [facility] Comment:CALCULATED USING THE FRIEDEWALD EQUATION NON HDL CHOLESTEROL 50 <130 MG/DL 11/11 11:44 AM CDT [facility] CHOL/HDL RATIO 2.0 0.0 - 4.5 11/11/2024 11:44 AM T [facility] VLDL CALCULATION 17 5 - 55 MG/DL 11/11/2024 11:44 AM T [facility] LIPID INTERPRETATION 11/11/2024 11:44 AM T [facility] Comment: NIH CONCENSUS REPORT RECOMMENDATIONS: ADULT CHILD LOW RISK: CHOLESTEROL <200 <170 TRIGLYCERIDE <150 --- HDL >=60 --- LDL <100 <110 BORDERLINE: CHOLESTEROL 200-239 170-199 TRIGLYCERIDE 150-199 --- HDL 40-59 --- LDL 100-159 110-129 HIGH RISK: CHOLESTEROL >=240 >=200 TRIGLYCERIDE >=200 --- HDL <40 --- LDL >=160 >=130 11/11/2024 10:1 0 AM CDT Guillermo Sykes MD LABORATORY Final Result [facility] [address] [facility] [address], [place] [phone] * CT ABD+PEL KIDNEY STONE (10/04/2024 12:32 PM CDT) Anatomical Region Laterality Modality Abdomen Computed Tomogra phy 10/04/2024 3:17 PM CDT Impressions 10/04/2024 3:35 PM CDT IMPRESSION: 1. No renal lithiasis or hydronephrosis or evidence of obstructive uropathy 2. No bowel obstruction or acute inflammatory change in the large or small bowel 3. Urinary bladder and prostate unremarkable, unchanged.. Referred By: OSMIN MARES Interpreted By: Vicky Morton DO, 10/04/2024 3:17 PM Narrative 10/04/2024 3:35 PM CDT [facility] [address] [place] [address] CLINICAL INDICATION: 69-year-old male. Reason for examination: Hematuria. 10/04/2024 12:40 PM, Keaton Webb S: PAINLESS HEMATURIA 1 WEEK AND HX OF STONES TECHNIQUE: CT of the abdomen and pelvis is obtained at 3 mm increments without the use of oral or intravenous contrast. Images obtained from the lung bases to the femoral heads. Additional coronal and sagittal reconstructions were performed. .Dose lowering technique was used for this study which may include, but is not limited to, dose reduction techniques, automated exposure control, use of iterative reconstruction and ALARA (As low As Reasonably Achievable)/Image Gently techniques. COMPARISON: Renal stone CT 05/04/2021 FINDINGS: Included lung bases: Clear of infiltrate or effusion. Wide necked fat-containing anterior epigastric fat herniation into lower pericardial space around previous mesh repair unchanged since 2021; neck measures 3.4 cm hernia sac measures at least 8 cm (incompletely included on this study.) No evidence of recurrent extension into the ventral abdominal wall. ABDOMEN: The unenhanced liver and spleen and adrenal glands and pancreas and gallbladder are unremarkable. Right kidney: Normal size with normal cortical thickness. No renal lithiasis or hydronephrosis or ureteric calculi. Left kidney: Normal size. Normal cortical thickness. No renal lithiasis or hydronephrosis or ureteric calculi. The nonobstructing stones seen in 2021 are no longer present GI: The stomach and small bowel are unremarkable. Appendix not identified. No inflammatory process in the right lower quadrant. The colon is normal in caliber and position. Extensive sigmoid diverticulosis. No segment of diverticulitis. No bowel obstruction. No free air or free fluid in the abdomen or pelvis. PELVIS: Urinary bladder: Normally filled. Normal bladder wall. No intracystic calculi. Stable normal-sized prostate measures 3 cm in diameter. BONE WINDOW IMAGING: Stable mild diffuse disc bulge facet hypertrophy intervertebral disc space narrowing L4-5 and L5-S1. Stable moderate degenerative change [id number] with intervertebral disc space narrowing bridging osteophytosis mild facet hypertrophy. VASCULAR IMAGING: Stable linear circumferential plaque around the infrarenal aorta without hemodynamically significant narrowing of the outflow or proximal inflow arterial supply. Stable circumferential calcification around the SMA and the celiac trunk without distal hemodynamically significant narrowing. Procedure Note Vicky Morton MD - 10/04/2024 [facility] [address] [facility] [place] [address] CLINICAL INDICATION: 69-year-old male. Reason for examination: Hematuria. 10/04/2024 12:40 PM, Keaton Webb S: PAINLESS HEMATURIA 1 WEEK AND HXOF STONES TECHNIQUE: CT of the abdomen and pelvis is obtained at 3 mm increments without theuse of oral or intravenous contrast. Images obtained from the lung basesto the femoral heads. Additional coronal and sagittal reconstructionswere performed. .Dose lowering technique was used for this study which may include, but isnot limited to, dose reduction techniques, automated exposure control, useof iterative reconstruction and ALARA (As low As ReasonablyAchievable)/Image Gently techniques. COMPARISON: Renal stone CT 05/04/2021 FINDINGS: Included lung bases: Clear of infiltrate or effusion. Wide necked fat-containing anterior epigastric fat herniation into lowerpericardial space around previous mesh repair unchanged since 2021; neckmeasures 3.4 cm hernia sac measures at least 8 cm (incompletely includedon this study.) No evidence of recurrent extension into the ventralabdominal wall. ABDOMEN: The unenhanced liver and spleen and adrenal glands and pancreas andgallbladder are unremarkable. Right kidney: Normal size with normal cortical thickness. No renallithiasis or hydronephrosis or ureteric calculi. Left kidney: Normal size. Normal cortical thickness. No renal lithiasisor hydronephrosis or ureteric calculi. The nonobstructing stones seen in 2021 are no longer present GI: The stomach and small bowel are unremarkable. Appendix notidentified. No inflammatory process in the right lower quadrant. Thecolon is normal in caliber and position. Extensive sigmoiddiverticulosis. No segment of diverticulitis. No bowel obstruction. Nofree air or free fluid in the abdomen or pelvis. PELVIS: Urinary bladder: Normally filled. Normal bladder wall. No intracysticcalculi. Stable normal-sized prostate measures 3 cm in diameter. BONE WINDOW IMAGING: Stable mild diffuse disc bulge facet hypertrophy intervertebral disc spacenarrowing L4-5 and L5-S1. Stable moderate degenerative [id number] with intervertebral disc space narrowing bridgingosteophytosis mild facet hypertrophy. VASCULAR IMAGING: Stable linear circumferential plaque around the infrarenal aorta withouthemodynamically significant narrowing of the outflow or proximal inflowarterial supply. Stable circumferential calcification around the SMA andthe celiac trunk without distal hemodynamically significant narrowing. IMPRESSION: 1. No renal lithiasis or hydronephrosis or evidence of obstructiveuropathy 2. No bowel obstruction or acute inflammatory change in the large orsmall bowel 3. Urinary bladder and prostate unremarkable, unchanged.. Referred By: OSMIN MARES Interpreted By: Vicky Morton DO, 10/04/2024 3:17 PM Osmin Mares MD CT Final Result * DIABETIC RETINOPATHY EXAM (NEGATIVE) (08/24/2024) [facility] Scanned SCANNING Final Resu lt [facility] ONBASE * HEPATITIS C ANTIBODY (11/20/2022 9:27 AM CDT) HEPATITIS C AB NON-REACTI VE NON-REACT YAN 11/20/2022 7:57 PM CDT [facility] Comment: ANTIBODIES TO HCV NOT DETECTED. DOES NOT EXCLUDE THE POSSIBILITY OF EXPOSURE TO HCV. 11/20/2022 9:27 AM CDT Osmin Mares MD LABORATORY Final Result Performing Organization Address [facility] de Phone Number [facility] [address] [phone], [id number] * COLONOSCOPY GENERIC (04/14/2019) 04/14/2019 Narrative 04/14/2019 Ordered by an unspecified provider. us Documents Scanned SCANNING Final Result from Last 3 Months or Most Recently Relevant to Health Maintenance Insurance MEDICARE [employer] Advance Directives Documents on File Type Date Recorded Patient Film And Video Editor Expl anation Advance Directives and Living Will 09/29/2020 11:39 AM 05/12/2003 POA FOR HEALTHCARE * Full Code (Latest Code Status on File) Date Activated Date Inactivated Comments 10/02/2020 12:44 PM * Full Code Date Activated Date Inactivated Comments 09/21/2020 2:18 PM 09/28/2020 3:05 PM * Full Code Date Activated Date Inactivated Comments 09/20/2020 1:27 PM 09/21/2020 2:18 PM Care Teams Laboratory Aide Relationship Specialty Start Date End Date Osmin Mares MD [address] [address] PCP - General INTERNAL MEDICINE 10/30/20
--- OUTSIDE RECORDS SUMMARY | 2025-02-08 00:58 | XMS_ITS | Encounter Summary ---
Author Organization [facility] Address [address] [place] [address] Care Team Providers Care Director Of Business Operations Name Role Phone Osmin Mares MD Primary Care Provider Encounter Details Date Type Department Care Team (Latest Contact Info) Description 05/07/2024 Sun [employer] Skin Care Researchhart Message Enc [facility] Multispecialty Care - [place] [address] [address] [place] [address] Osmin Mares MD [address] [place] [address] [address] [place] [address] metFORMIN 500 MG tablet refill Social History Tobacco Use Types Packs/Day Years [...] Date Recorded Patient Health Questionnaire-2 Score 0 11/19/2022 PRAPARE - Transportation Answer Date Re corded [...] Description 07/19/2025 10:20 AM CDT Office Visit [facility] Multispecialty Care [place] [address] [address] [place] [address] Osmin Mares MD [address] [place] [address] [address] [place] [address] documented as of this encounter Visit Diagnoses Not on filedocumented in this encounter Additional Health Concerns Assessment Noted Time PHQ-9 Depression Total Score: 0 05/31/19 22 12:27 PM CDT documented as of this encounter Care Teams Director Of Business Operations Relationship Specialty Start Date End Date Osmin Mares MD [address] [address] PCP - General INTERNAL MEDICINE 10/30/20 documented as of this encounter
--- OUTSIDE RECORDS SUMMARY | 2025-02-08 00:58 | XMS_ITS | Encounter Summary ---
Author Organization [facility] Address [address] [place] [address] Care Team Providers Care Whip Operator Name Role Phone Osmin Mares MD Primary Care Provider [phone] Encounter Details Date Type Department Care Team (Latest Contact Info) Description 01/18/2021 Mercateo Message Enc [facility] Medical Group Multispecialty Care - [place] [address] [address] [place] [address] Osmin Mares MD [address] [place] [address] [address] [place] [address] Follow up for 01/30 appointment Social History Tobacco Use Types Packs/Day Years Used Date Smoking Tobacco: Former Pipe Q uit: 1982 Smokeless Tobacco: Never Comments:counseled by Dr Lyn [...] have Coronavirus / COVID-19? 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 documented as of this encounter Functional Status [...] Description 07/19/2025 10:20 AM CDT Office Visit [facility] Medical Group Multispecialty Care - [place] [address] [address] [place] [address] Osmin Mares MD [address] [place] [address], [place] [address] documented as of this encounter Visit Diagnoses Not on filedocumented in this encounter Additional Health Concerns Assessment Noted Time PHQ-9 Depression Total Score: 2 10/31/19 21 2:57 PM CDT documented as of this encounter Care Teams Whip Operator Relationship Specialty Start Date End Date Osmin Mares MD [address] [facility] [address] [place] [address] PCP - General INTERNAL MEDICINE 10/30/20 documented as of this encounter
--- OUTSIDE RECORDS SUMMARY | 2025-02-08 00:58 | XMS_ITS | Encounter Summary ---
Author Organization [facility] Address [address] [place] [address] Care Team Providers Care Utilization Reviewer Name Role Phone Osmin Mares MD Primary Care Provider [phone] Encounter Details Date Type Department Care Team (Latest Contact Info) Description 11/26/2022 Knight Warnerhart Message Enc [facility] Medical Group Multispecialty Care - [place] [address] [address] [address] [place] [address] Osmin Mares MD [address] [place] [address] [address] [place] [address] Information on notes from 11/19- Visits Social History Tobacco Use Types Packs/Day Years [...] Description 07/19/2025 10:20 AM CDT Office Visit [facility] Medical Group Multispecialty Care [place] [address] [address] [place] [address] Osmin Mares MD [address] [place] [address] documented as of this encounter Visit Diagnoses Not on filedocumented in this encounter Additional Health Concerns Assessment Noted Time PHQ-9 Depression Total Score: 0 05/31/19 22 12:27 PM CDT documented as of this encounter Care Teams Utilization Reviewer Relationship Specialty Start Date End Date Osmin Mares MD [address] [address] PCP - General INTERNAL MEDICINE 10/30/20 documented as of this encounter
--- OUTSIDE RECORDS SUMMARY | 2025-02-08 00:58 | XMS_ITS | Encounter Summary ---
Author Organization [facility] Address [address] [place] [address] Care Team Providers Care Burglar Alarm Operator Name Role Phone Osmin Mares MD Primary Care Provider [phone] Encounter Details Date Type Department Care Team (Latest Contact Info) Description 2025 ERNt Message Enc [facility] Medical Group Multispecialty Care - [place] [address] [address] [place] [address] Osmin Mares MD [address] [place] [address] [address] [place] [address] Chair Springer and Urologist Information Social History Tobacco Use Types Packs/Day Years Used Date Smoking Tobacco: Former Cigarettes Q uit: 03/10/1981 Pipe Quit: 03/10/18 82 Smokeless Tobacco: Never Comments:Nominal use for tas [...] 5:59 PM Osmin Chavarria MD Active * [place] Suicide Severity Rating Scale (Screener/Recent Self-Report) Question Answer Date of Assessment Author Status 1. Wish to be (Past 1 Month) No 2025 5:59 PM Osmin Chavarria MD Active 2. Non-Specific Active Suici amanda Thoughts (Past 1 Month) No 2025 5:59 [...] Description 07/19/2025 10:20 AM CDT Office Visit [facility] Medical Group Multispecialty [facility] - [place] [address] [address] [address] [place] [address] Osmin Mares MD [address] [place] [address] documented as of this encounter Visit Diagnoses Not on filedocumented in this encounter Additional Health Concerns Assessment Noted Time PHQ-9 Depression Total Score: 3 07/22/19 25 10:14 AM CDT documented as of this encounter Care Teams Burglar Alarm Operator Relationship Specialty Start Date End Date Osmin Mares MD [address] [place] [address] PCP - General INTERNAL MEDICINE 10/30/20 documented as of this encounter
--- OUTSIDE RECORDS SUMMARY | 2025-02-08 00:58 | XMS_ITS | Encounter Summary ---
Author Organization [facility] Address [address] [place] [address] Care Team Providers Care Steam Train Driver Name Role Phone Osmin Mares MD Primary Care Provider [phone] Encounter Details Date Type Department Care Team (Late st Contact Info) Description 01/21/2022 Dexetra Message Enc [facility] [address] [place] [address] David Bennett MD,PHD MRI Social History Tobacco Use Types Packs/Day [...] documented in this encounter Progress Notes * Kayt Marinelli RN - 01/21/2022 3:26 PM CST . MAKER documented in this encounter Plan of Treatment Upcoming Encounters Date Type Department Care Team (Late st Contact Info) Description 07/19/2025 10:20 AM CDT Office Visit [facility] Medical Group Multispecialty Care - [place] [address] [address] [place] [address] Osmin Mares MD [address] [place] [address] documented as of this encounter Visit Diagnoses Not on filedocumented in this encounter Additional Health Concerns Assessment Noted Time PHQ-9 Depression Total Score: 0 05/31/19 22 12:27 PM CDT documented as of this encounter Care Teams Steam Train Driver Relationship Specialty Start Date End Date Osmin Mares MD [address] [address] PCP - General INTERNAL MEDICINE 10/30/20 documented as of this encounter
--- OUTSIDE RECORDS SUMMARY | 2025-02-08 00:58 | XMS_ITS | Encounter Summary ---
Author Organization [facility] Address [address] [place] [address] Care Team Providers Care Agriculture Consultant Name Role Phone Osmin Mares MD Primary Care Provider [phone] Encounter Details Date Type Department Care Team (Latest Contact Info) Description 01/31/2025 Zh[employer]t Message Enc [facility] Medical Group Multispecialty Care - [place] [address] [address] [place] [address] Osmin Mares MD [address] [place] [address] [address] [place] [address] Endocrinology Referral Social History Tobacco Use Types Packs/Day Years Used Date Smoking Tobacco: Never Smokeless Tobacco: Never Comments:Nominal use for tas [...] [facility] Medical Group Multispecialty Care - [place] [address] [address] [place] [address] [place] [address] [place] [address] [address] [place] [address] documented as of this encounter Visit Diagnoses Not on filedocumented in this encounter Additional Health Concerns Assessment Noted Time PHQ-9 Depression Total Score: 3 07/22/19 25 10:14 AM CDT documented as of this encounter Care Teams Agriculture Consultant Relationship Specialty Start Date End Date Osmin Mares MD [facility] [address] [address] PCP - General INTERNAL MEDICINE 10/30/20 documented as of this encounter
--- OUTSIDE RECORDS SUMMARY | 2025-02-08 00:58 | XMS_ITS | Encounter Summary ---
Author Organization [facility] Address [address] [place] [address] Care Team Providers Care Rpg Programmer Name Role Phone Osmin Mares MD Primary Care Provider [phone] Encounter Details Date Type Department Care Team (Late st Contact Info) Description 07/22/2024 Abstract [facility] Medical Group Multispecialty Care - [place] [address] [address] [place] [address] Osmin Mares MD [address] [place] [address] [address] [place], [place] [id number] Social History Tobacco Use Types Packs/Day Years [...] Description 07/19/2025 10:20 AM CDT Office Visit [facility] Medical Group Multispecialty Care - [place] [address] [place] [address] [address] [place] [address] Osmin Mares MD [address] [place] [address] [address] [place] [address] documented as of this encounter Visit Diagnoses Not on filedocumented in this encounter Additional Health Concerns Assessment Noted Time PHQ-9 Depression Total Score: 3 07/22/19 25 10:14 AM CDT documented as of this encounter Care Teams Rpg Programmer Relationship Specialty Start Date End Date Osmin Mares MD [address] [place] [address] [address] PCP - General INTERNAL MEDICINE 10/30/20 documented as of this encounter
--- OUTSIDE RECORDS SUMMARY | 2025-02-08 00:58 | XMS_ITS | Encounter Summary ---
Author Organization [facility] Address [address] [place] [address] Care Team Providers Care Private Household Worker Name Role Phone Osmin Mares MD Primary Care Provider [phone] Encounter Details Date Type Department Care Team (Latest Contact Info) Description 05/01/2022 MyChart Message Enc [facility] Medical Group Multispecialty Care - [place] [address] [address] [address] [place] [address] Osmin Mares MD [address] [place] [address] [address] [place] [address] Morning Dizziness Social History Tobacco Use Types Packs/Day Years [...] Description 07/19/2025 10:20 AM CDT Office Visit [facility] Medical Group Multispecialty Care - [place] [address] [address] [address] [place] [address] Osmin Mares MD [address] [place] [address] documented as of this encounter Visit Diagnoses Not on filedocumented in this encounter Additional Health Concerns Assessment Noted Time PHQ-9 Depression Total Score: 0 05/31/19 22 12:27 PM CDT documented as of this encounter Care Teams Private Household Worker Relationship Specialty Start Date End Date Osmin Mares MD [address] [address] PCP - General INTERNAL MEDICINE 10/30/20 documented as of this encounter
--- OUTSIDE RECORDS SUMMARY | 2025-02-08 00:58 | XMS_ITS | Encounter Summary ---
Author Organization [facility] Address [address] [place] [address] Care Team Providers Care Prop Making Supervisor Name Role Phone Osmin Mares MD Primary Care Provider [phone] Encounter Details Date Type Department Care Team (Latest Contact Info) Description 01/18/2021 Silverpop Message Enc [facility] [address] [place] [address] David Bennett MD,PHD Follow up for appointment on 01/22 Social History Tobacco Use Types Packs/Day Years [...] COVID-19? No / Unsure 2021 10:54 AM FLEXOGRAPHIC PRINTING PRESS OPERATOR documented as of this encounter Functional [...] Progress Notes * Katy Marinelli RN - 01/18/2021 11:45 AM CST FYI for appt friday OGRAPHIC PRINTING PRESS OPERATOR documented in this encounter Plan of Treatment Upcoming Encounters Date Type Department Care Team (Late st Contact Info) Description 07/19/2025 10:20 AM CDT Office Visit [facility] Medical Group Multispecialty Care - [place] [address] [address] [address] [place] [address] Osmin Mares MD [address] [place] [address] documented as of this encounter Visit Diagnoses Not on filedocumented in this encounter Additional Health Concerns Assessment Noted Time PHQ-9 Depression Total Score: 2 10/31/19 21 2:57 PM CDT documented as of this encounter Care Teams Prop Making Supervisor Relationship Specialty Start Date End Date Osmin Mares MD [address] [place] [address] PCP - General INTERNAL MEDICINE 10/30/20 documented as of this encounter
--- OUTSIDE RECORDS SUMMARY | 2025-02-08 00:58 | XMS_ITS | Encounter Summary ---
Author Organization [facility] Address [address] [place] [address] Care Team Providers Care Disease Case Manager Name Role Phone Magan Canada MD Primary Care Provider [phone] Osmin Mares MD Primary Care Provider [phone] Encounter Details Date Type Department Care Team (Latest Contact Info) Description 09/29/2020 SlideMail Message Enc [facility] [address] [place] [address] David Bennett MD,PHD RE: Medication Questions Social [...] care, and heating? Not very hard 09/20/2020 PRAPARE - Transportation Answer Date Re corded [...] have Coronavirus / COVID-19? No / Unsure 09/20/2020 5:59 AM CDT documented as of this encounter [...] Progress Notes * David Bennett MD,PHD - 09/29/2020 3:23 PM CDT The patient does not have to take Praluent for now because he is on the rosuvastatin. He had statedthat he wanted to give rosuvastatin another shot because of his dislike for medicines that involve injections. He will only need to take Praluent if the rosuvastatin causes side effects that significantly affect his quality of life given that he has experienced shoulder weakness and arm weakness in the past. Tramadol is an opiate. It was prescribed for pain. He should certainly try Tylenol first for pain before going on to tramadol. As the patient may no tramadol and other opiates have an addictive potential. I defer to Dr. Reyna regarding the use of tramadol. The patient should stop taking the amlodipine. He is now on lisinopril which will control his blood pressure and is good for the kidneys when patients have diabetes mellitus. * Katy Marinelli RN - 09/29/2020 10:40 AM CDT The way I read the image is to continue the praluent and to discontinue the amlodipine. Is this correct? Or do you want him to make additional changes. documented in this encounter Plan of Treatment Upcoming Encounters Date Type Department Care Team (Late st Contact Info) Description 07/19/2025 10:20 AM CDT Office Visit [facility] Medical Group Multispecialty Care - [place] [address] [address] [place] [address] Osmin Mares MD [address] [place] [address] documented as of this encounter Visit Diagnoses Not on filedocumented in this encounter Care Teams Disease Case Manager Relationship Specialty Start Date End Date Magan Canada MD [facility] [address] [id number] PCP - General INTERNAL MEDICINE 08/29/20 10/29/20 Osmin Mares MD [address] [place] [address] PCP - General INTERNAL MEDICINE 10/30/20 documented as of this encounter
--- OUTSIDE RECORDS SUMMARY | 2025-02-08 00:59 | XMS_ITS | Encounter Summary ---
Author Organization [facility] Address [address] [place] [address] Care Team Providers Care Inside Plant Supervisor Name Role Phone Osmin Mares MD Primary Care Provider [phone] Encounter Details Date Type Department Care Team (Latest Contact Info) Description 03/31/2021 Reval.comt Message Enc [facility] Medical Group Multispecialty Care - [place] [address] [address] [place] [address] Osmin Mares MD [address] [place] [address] [address] [place] [address] Refill of Jardiance 25 mg Social History Tobacco Use Types Packs/Day Years [...] have Coronavirus / COVID-19? No / Unsure 04/03/2021 1:02 PM TONGUE CARRIER documented as of this encounter Functional Status [...] Description 07/19/2025 10:20 AM CDT Office Visit [facility] Medical Group Multispecialty Care - [place] [address] [address] [place] [address] Osmin Mares MD [address] [place], [place] [address], [place] [address] documented as of this encounter Visit Diagnoses Not on filedocumented in this encounter Additional Health Concerns Assessment Noted Time PHQ-9 Depression Total Score: 0 02/22/20 21 10:05 AM TONGUE CARRIER documented as of this encounter Care Teams Inside Plant Supervisor Relationship Specialty Start Date End Date Osmin Mares MD [address] [address] PCP - General INTERNAL MEDICINE 10/30/20 documented as of this encounter
--- OUTSIDE RECORDS SUMMARY | 2025-02-08 00:59 | XMS_ITS | Encounter Summary ---
Author Organization [facility] Address [address] [place] [address] Care Team Providers Care Hearing And Speech Assistant Name Role Phone Osmin Mares MD Primary Care Provider [phone] Encounter Details Date Type Department Care Team (Latest Contact Info) Description 11/04/2020 Open Gardent Message Enc [facility] Multispecialty Care - [place] [address] [address] [place] [address] Osmin Mares MD [address] [place] [address] [address] [place] [address] RE: Follow Up/Update Social History Tobacco Use Types Packs/Day Years [...] please move on to questions 3-9 0 10/30/2020 PRAPARE - Transportation Answer Date Re corded [...] have Coronavirus / COVID-19? No / Unsure 11/05/2020 6:08 PM CDT documented as of this encounter Functional [...] Description 07/19/2025 10:20 AM CDT Office Visit [facility] Multispecialty Care - [place] [address] [address] [place] [address] Osmin Mares MD [address] [place] [address], [place] [address] documented as of this encounter Visit Diagnoses Not on filedocumented in this encounter Additional Health Concerns Assessment Noted Time PHQ-9 Depression Total Score: 2 10/31/19 21 2:57 PM CDT documented as of this encounter Care Teams Hearing And Speech Assistant Relationship Specialty Start Date End Date Osmin Mares MD [address] [facility] [address] [place] [address] PCP - General INTERNAL MEDICINE 10/30/20 documented as of this encounter
--- OUTSIDE RECORDS SUMMARY | 2025-02-08 00:59 | XMS_ITS | Encounter Summary ---
Author Organization [facility] Address [address] [place] [address] Care Team Providers Care Sales Negotiator Name Role Phone Osmin Mares MD Primary Care Provider [phone] Encounter Details Date Type Department Care Team (Latest Contact Info) Description 03/14/2023 MyChart Message Enc [facility] Medical Group Multispecialty Care - [place] [address] [address] [place] [address] Osmin Mares MD [address] [place] [address] [address] [place] [address] New Covid Infection? Social History Tobacco Use Types Packs/Day Years [...] MEDICAL CENTER Medical Group Multispecialty Care - [place] [address] [address] [place] [address] Osmin Mares MD [address] [place] [address] [address] [place] [address] documented as of this encounter Visit Diagnoses Not on filedocumented in this encounter Additional Health Concerns Assessment Noted Time PHQ-9 Depression Total Score: 0 05/31/19 22 12:27 PM CDT documented as of this encounter Care Teams Sales Negotiator Relationship Specialty Start Date End Date Osmin Mares MD [address] [address] PCP - General INTERNAL MEDICINE 10/30/20 documented as of this encounter
--- OUTSIDE RECORDS SUMMARY | 2025-02-08 00:59 | XMS_ITS | Encounter Summary ---
Author Organization [facility] Address [address] [place] [address] Care Team Providers Care Services Clerk Name Role Phone Osmin Mares MD Primary Care Provider [phone] Encounter Details Date Type Department Care Team (Late st Contact Info) Description 12/26/2020 [employer] Message Enc [facility] Medical Group Multispecialty Care - [place] [address] [address] [place] [address] Osmin Mares MD [address] [place] [address] [address] [place] [address] RE: Other Social History Tobacco Use Types Packs/Day Years [...] have Coronavirus / COVID-19? No / Unsure 12/26/2020 1:09 PM CDT documented as of this encounter [...] 10:20 AM CDT Office Visit [facility] Medical Group Multispecialty Care - [place] [address] [address] [place] [address] Osmin Mares MD [address] [place] [address] documented as of this encounter Visit Diagnoses Not on filedocumented in this encounter Additional Health Concerns Assessment Noted Time PHQ-9 Depression Total Score: 2 10/31/19 21 2:57 PM CDT documented as of this encounter Care Teams Services Clerk Relationship Specialty Start Date End Date Osmin Mares MD [address] [address] PCP - General INTERNAL MEDICINE 10/30/20 documented as of this encounter
--- OUTSIDE RECORDS SUMMARY | 2025-02-08 00:59 | XMS_ITS | Encounter Summary ---
Author Organization [facility] Address [address] [place] [address] Care Team Providers Care Government Service Executive Name Role Phone Osmin Mares MD Primary Care Provider [phone] Encounter Details Date Type Department Care Team (Latest Contact Info) Description 12/26/2023 MyChart Message Enc [facility] Medical Group Multispecialty Care - [place] [address] [address] [place] [address] Osmin Mares MD [address] [place] [address] [address] [place] [address] Covid Vaccination Update Social History Tobacco Use Types Packs/Day Years [...] Description 07/19/2025 10:20 AM CDT Office Visit [facility] Multispecialty Care - [place] [address] [address] [place] [address] [place] [address] [place] [address] 157 [place] [address] documented as of this encounter Visit Diagnoses Not on filedocumented in this encounter Additional Health Concerns Assessment Noted Time PHQ-9 Depression Total Score: 0 05/31/19 22 12:27 PM CDT documented as of this encounter Care Teams Government Service Executive Relationship Specialty Start Date End Date Osmin Mares MD [address] [address] PCP - General INTERNAL MEDICINE 10/30/20 documented as of this encounter
--- OUTSIDE RECORDS SUMMARY | 2025-02-08 00:59 | XMS_ITS | Encounter Summary ---
Author Organization [facility] Address [address] [place] [address] Care Team Providers Care Coater Helper Name Role Phone Osmin Mares MD Primary Care Provider [phone] Encounter Details Date Type Department Care Team (Latest Contact Info) Description 09/24/2023 MyChart Message Enc [facility] Medical Group Multispecialty Care - [place] [address] [address] [place] [address] Osmin Mares MD [address] [place] [address] [address] [place] [address] Communications with cant gang sawyer Social History Tobacco Use Types Packs/Day Years [...] 10:20 AM CDT Office Visit [facility] Medical Group Multispecialty Care - [place] [address] [address] [place] [address] Osmin Mares MD [address] [place] [address] [address] [place] [address] documented as of this encounter Visit Diagnoses Not on filedocumented in this encounter Additional Health Concerns Assessment Noted Time PHQ-9 Depression Total Score: 0 05/31/19 22 12:27 PM CDT documented as of this encounter Care Teams Coater Helper Relationship Specialty Start Date End Date Osmin Mares MD [address] [address] PCP - General INTERNAL MEDICINE 10/30/20 documented as of this encounter
--- OUTSIDE RECORDS SUMMARY | 2025-02-08 00:59 | XMS_ITS | Encounter Summary ---
Author Organization [facility] Address [address] [place] [address] Care Team Providers Care Floorman Name Role Phone Osmin Mares MD Primary Care Provider [phone] Encounter Details Date Type Department Care Team (Latest Contact Info) Description 11/20/2023 MyChart Message Enc [facility] Medical [facility] Multispecialty Care - [place] [address] [address] [place] [address] Osmin Mares MD [address] [place] [address] [address] [place] [address] Need appointment rescheduled Social History Tobacco Use Types Packs/Day Years [...] Description 07/19/2025 10:20 AM CDT Office Visit [facility] Multispecialty Care - [place] [address] [address] [place] [address] Osmin Mares MD [address] [place] [address] [address] [place] [address] documented as of this encounter Visit Diagnoses Not on filedocumented in this encounter Additional Health Concerns Assessment Noted Time PHQ-9 Depression Total Score: 0 05/31/19 22 12:27 PM CDT documented as of this encounter Care Teams Floorman Relationship Specialty Start Date End Date Osmin Mares MD [address] [address] PCP - General INTERNAL MEDICINE 10/30/20 documented as of this encounter
--- OUTSIDE RECORDS SUMMARY | 2025-02-08 00:59 | XMS_ITS | Encounter Summary ---
Author Organization [facility] Address [address] [place] [address] Care Team Providers Care Chair Mechanic Name Role Phone Osmin Mares MD Primary Care Provider [phone] Encounter Details Date Type Department Care Team (Latest Contact Info) Description 05/19/2023 MyChart Message Enc [facility] Medical Group Multispecialty Care - [place] [address] [address] [place] [address] Osmin Mares MD [address] [place] [address] [address] [place] [address] Information for Office Appointment FridayMay 19 Social History Tobacco Use Types Packs/Day Years [...] Description 07/19/2025 10:20 AM CDT Office Visit [facility] Medical Group Multispecialty Care - [place] [address] [address] [place] [address] Osmin Mares MD [address] [place] [address] [address] [place] [address] documented as of this encounter Visit Diagnoses Not on filedocumented in this encounter Additional Health Concerns Assessment Noted Time PHQ-9 Depression Total Score: 0 05/31/19 22 12:27 PM CDT documented as of this encounter Care Teams Chair Mechanic Relationship Specialty Start Date End Date Osmin Mares MD [address] [address] PCP - General INTERNAL MEDICINE 10/30/20 documented as of this encounter
--- OUTSIDE RECORDS SUMMARY | 2025-02-08 00:59 | XMS_ITS | Encounter Summary ---
Author Organization [facility] Address [address] [place] [address] Care Team Providers Care Trauma Doctor Name Role Phone Osmin Mares MD Primary Care Provider [phone] Encounter Details Date Type Department Care Team (Latest Contact Info) Description 12/12/2021 MyChart Message Enc [facility] Medical Group Multispecialty Care - [place] [address] [address] [place] [address] Osmin Mares MD [address] [place] [address] [address] [place] [address] stable EKG findings Social History Tobacco Use Types Packs/Day Years [...] Recorded In the last 10 days, have yo u been in contact with someone who was confirmed or suspected to have Coronavirus/COVID-19? No / Unsure 12/12/2021 10:11 AM CDT documented as of this encounter [...] Description 07/19/2025 10:20 AM CDT Office Visit [facility] Medical Group Multispecialty Care - [address] [place] [address] Osmin Mares MD [address] [address] documented as of this encounter Visit Diagnoses Not on filedocumented in this encounter Additional Health Concerns Assessment Noted Time PHQ-9 Depression Total Score: 0 05/31/19 22 12:27 PM CDT documented as of this encounter Care Teams Trauma Doctor Relationship Specialty Start Date End Date Osmin Mares MD [address] [address] PCP - General INTERNAL MEDICINE 10/30/20 documented as of this encounter
--- OUTSIDE RECORDS SUMMARY | 2025-02-08 00:59 | XMS_ITS | Encounter Summary ---
Author Organization [facility] Address [address] [place] [address] Care Team Providers Care Piler Name Role Phone Magan Canada MD Primary Care Provider [phone] Osmin Mares MD Primary Care Provider [phone] Encounter Details Date Type Department Care Team (Latest Contact Info) Description 10/25/2020 [employer] Message Enc [facility] [address] [place] [address] David Bennett MD,PHD Follow Up/Update Social History Tobacco Use Types [...] have Coronavirus / COVID-19? No / Unsure 10/23/2020 11:43 AM CDT documented as of this encounter [...] documented in this encounter Progress Notes * Nuha Fernandez - 10/26/2020 8:56 AM CDT Order in epic * Katy Marinelli RN - 10/26/2020 8:43 AM CDT Did not know anything about this but please place referral. Thanks! documented in this encounter Plan of Treatment Upcoming Encounters Date Type Department Care Team (Late st Contact Info) Description 07/19/2025 10:20 AM CDT Office Visit [facility] Medical Group Multispecialty Care - [place] [address] [facility] [address] [place] [address] Osmin Mares MD [address] [facility] [address] [place] [address] documented as of this encounter Visit Diagnoses Not on filedocumented in this encounter Care Teams Piler Relationship Specialty Start Date End Date Magan Canada MD [address] [place] [phone] PCP - General INTERNAL MEDICINE 08/29/20 10/29/20 Osmin Mares MD [address] [facility] [address] [place] [address] PCP - General INTERNAL MEDICINE 10/30/20 documented as of this encounter
--- OUTSIDE RECORDS SUMMARY | 2025-02-08 00:59 | XMS_ITS | Encounter Summary ---
Author Organization [facility] Address [address] [place] [address] Care Team Providers Care Site Specialist Name Role Phone Osmin Mares MD Primary Care Provider [phone] Encounter Details Date Type Department Care Team (Latest Contact Info) Description 06/02/2022 MyChart Message Enc [facility] Medical Group Multispecialty Care - [place] [address] [address] [place] [address] Osmin Mares MD [address] [place] [address] [address] [place] [address] Pneumonia Vaccine Update Social History Tobacco Use Types Packs/Day [...] suspected to have Coronavirus/COVID-19? No / Unsure 05/28/2022 10:10 AM CDT documented as of this encounter [...] Description 07/19/2025 10:20 AM CDT Office Visit [facility] Medical Group Multispecialty Care - [address] [place] [address] Osmin Mares MD [address] [facility] [address] [place] [address] documented as of this encounter Visit Diagnoses Not on filedocumented in this encounter Additional Health Concerns Assessment Noted Time PHQ-9 Depression Total Score: 0 05/31/19 22 12:27 PM CDT documented as of this encounter Care Teams Site Specialist Relationship Specialty Start Date End Date Osmin Mares MD [address] [address] PCP - General INTERNAL MEDICINE 10/30/20 documented as of this encounter
--- OUTSIDE RECORDS SUMMARY | 2025-02-08 00:59 | XMS_ITS | Encounter Summary ---
Author Organization [facility] Address [address] [place] [address] Care Team Providers Care Helicopter Pilot Name Role Phone Osmin Mares MD Primary Care Provider [phone] Encounter Details Date Type Department Care Team (Latest Contact Info) Description 06/06/2021 [employer] Message Enc [facility] Medical Group Multispecialty Care - [place] [address] [address] [place] [address] Osmin Mares MD [address] [place] [address] [address] [place] [address] Ios Programmer Referral Social History Tobacco Use Types Packs/Day [...] please move on to questions 3-9 0 05/30/2021 PRAPARE - Transportation Answer Date Re corded [...] 9:48 AM CDT Sexual Orientation Straight 07/21/2024 9 :48 AM CDT COVID-19 Exposure Response Date Recorded In the last 10 days, have yo u been in contact with someone who was confirmed or suspected to have Coronavirus/COVID-19? No / Unsure 05/30/2021 11:14 AM CDT documented as of this encounter [...] Description 07/19/2025 10:20 AM CDT Office Visit [facility] Medical Group Multispecialty Care - [place] [address] [address] [place] [address] Osmin Mares MD [address] [place] [address] [place] [address] documented as of this encounter Visit Diagnoses Not on filedocumented in this encounter Additional Health Concerns Assessment Noted Time PHQ-9 Depression Total Score: 0 05/31/19 22 12:27 PM CDT documented as of this encounter Care Teams Helicopter Pilot Relationship Specialty Start Date End Date Osmin Mares MD [address]8 [facility] [address] [place] [address] PCP - General INTERNAL MEDICINE 10/30/20 documented as of this encounter
--- OUTSIDE RECORDS SUMMARY | 2025-02-08 00:59 | XMS_ITS | Clinical Summary ---
Author Organization [facility] Address [address] [place] [phone] Phone Care Team Providers Care Environmental Health Specialist Name Role Phone Unknown, Notinfile Primary Care Provider Unavail able Allergies Active Allergy Reactions Criticality Noted Date Comments Sulfa (Sulfonamide Antibiotics) Nausea And Vomiting 09/05/2020 Medications aspirin 81 MG oral suspension Acti ve aspirin 81 mg chewable tablet Take 1 tablet (81 mg total) by mouth daily 2 Active Farxiga 10 mg tablet Take 1 tablet (10 mg total) by mouth daily 4 Active empagliflozin (JARDIANCE) 10 mg tablet Active metFORMIN (GLUCOPHAGE) 500 mg tablet TAKE 2 TABLETS BY MOUTH TWICE DAILY FOR DIABETES Active metoprolol XL (TOPROL-XL) 25 mg extended release tablet Take 1 tablet (25 mg total) by mouth daily 4 Active nitroglycerin (NITROSTAT) 0.[address] 1 tablet (0.4 mg total) under the tongue every 5 (five) minutes as needed 3 Active rosuvastatin (CRESTOR) 40 mg tablet TAKE 1 TABLET BY MOUTH NIGHTLY AT BEDTIME FOR ABNORMAL BLOOD CHOLESTEROL Active Entresto 24-26 mg tablet Take 1 tablet by mouth 2 (two) times a day 4 Active spironolactone (ALDACTONE) 25 mg tablet Take 1 tablet (25 mg total) by mouth daily 4 Active albuterol HFA (PROVENTIL HFA,VENTOLIN HFA,PROAIR HFA) 90 mcg/actuation inhalerIndicati ons:Acute URI,Wheezing Inhale 2 puffs every 4 (four) hours as needed for wheezing 8 g Active Active Problems No known active problems Social History Tobacco Use Types Packs/Day Years Used Date Smoking Tobacco: Never Assessed Sex and Gender Information Value Date Recorded Sex Assigned at Not on file Legal Sex Male 2:37 PM CDT Gender Identity Not on file Sexual Orientation Straight 08/31/2023 10 :08 AM CDT Last Filed Vital Signs Vital Sign Reading Time Taken Comments Blood Pressure 124/82 08/31/2023 4:37 PM CDT Pulse 96 08/31/2023 4:37 PM CDT Temperature 36.5 C (97.7 F) 08/31/2023 4:37 PM CDT Respiratory Rate 16 08/31/2023 4:37 PM CDT Oxygen Saturation 99% 08/31/2023 4:37 PM CDT Inhaled Oxygen Concentration - - Weight 108.9 kg (240 lb) 08/31/2023 4:37 PM CDT Height 177.8 cm (5' 10) 08/31/2023 4:37 PM CDT Body Mass Index 34.44 08/31/2023 4:37 PM CDT Plan of Treatment Health Maintenance Due Date Last Done Comments Colon Cancer Screening-Colonoscopy 1955 Depression Screening 1954 Fall Risk Assessment 1955 Hepatitis C Screening 1955 Hepatitis B Screening 01/20/1972 Zoster Vaccine (1 of 2) 01/20/2004 Well Visit 65+ 2019 Pneumococcal vaccine 65+ (2 of 2 - PCV) 02/01/2021 02/02/2020 DTaP/Tdap/Td Vaccine (3 - Td or Tdap) 04/18/2024 04/18/2014, 04/18/2014 Covid-19 Vaccine (6 - 2024-2 6 season) 2024 12/26/2021, 06/29/2021, 12/04/2020, Additional history exists Influenza Vaccine (#1) 2024 2, 12/16/2020, 12/05/2019, Additional history exists Prostate Cancer Screening-PSA Discontinued 10/09/2014 Abdominal Aortic Aneurysm (A AA) Screen Completed 05/04/2021, 02/12/2021, 10/08/2014 Medical Devices Implanted Type Area Exterminator Helper Termite Device Identifier Shelf Expiration Date Model / Serial / Lot Sternal Wires Sternum Procedures Procedure Name Priority Date/Time Associated Diagnosis Comments PSA DIAGNOSTIC Routine 10/09/2014 10:[address] ABDOMEN PELVIS W CONTRAST Routine 10/08/2014 12:00 AM CDT from Last 3 Months or Most Recently Relevant to Health Maintenance Results * PSA diagnostic (10/09/2014 10:30 AM CDT) Pathologist [facility] PSA,TOTAL DIAGNOSTIC 1.5 0.0 - 5.4 ng/mL Comment: Method: ECLIA Values obtained by different assay methods cannot be used interchangeably. Use sequential testing to confirm baseline if assay method changed during patient monitoring. 10/09/2014 10:3 0 AM CDT 10/09/2014 10:40 AM CDT Piyush Goldman MD LAB BLOOD ORDERABLES Mariah l Result [facility] HISTORICAL RESULTS * CT Abdomen Pelvis W Contrast (10/08/2014 12:00 AM CDT) Anatomical Region Laterality Modality Body N/A Computed Tomogra phy 10/08/2014 Impressions 10/08/2014 3:05 PM CDT 1. No evidence of bowel obstruction. 2. Diverticulosis without evidence of diverticulitis. 3. Small hiatal hernia. 4. Mild wedge deformity along the superior endplate of L1, suggestive of a compression fracture of uncertain chronicity. THIS IS AN ELECTRONICALLY VERIFIED REPORT 10/08/2014 3:01 PM: Everardo Mackay M.D. Everardo Mackay M.D. AT:at 03:01 PM 03:[address] [facility] [EOD] Narrative 10/08/2014 3:05 PM CDT EXAMINATION: CT OF THE ABDOMEN AND PELVIS WITH IV CONTRAST DATE: 10/08/2014 COMPARISON: None HISTORY: Right lower quadrant pain, multi site abdominal pain, bilateral flank pain, currently being treated for prostatitis history of diabetes hiatal hernia and appendectomy TECHNIQUE: CT of the abdomen and pelvis was performed with IV contrast. 100 mL of Omnipaque 350 was instilled intravenously through the left wrist.No oral contrast was administered. FINDINGS: Images of the lung bases demonstrate a few calcified granulomata within the left lung base. The liver, pancreas, adrenal glands, and gallbladder demonstrate an unremarkable postcontrast CT appearance. Multiple calcifications within the spleen are noted, compatible with prior granulomatous disease. Kidneys demonstrate unremarkable postcontrast enhancement. Bladder is moderately distended with fluid and appears otherwise unremarkable. Renal collecting system is not significantly dilated. Small hiatal hernia is present. Aorta demonstrates normal course and caliber with mild - moderate atherosclerotic disease. Scattered diverticulosis of the sigmoid colon is noted without evidence of surrounding inflammatory changes to suggest diverticulitis. There is no evidence of bowel obstruction. 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 Mild wedge deformity along the superior endplate of L1 is noted. Procedure Note Provider, MD Nicanor - 07/25/2020 EXAMINATION: CT OF THE ABDOMEN AND PELVIS WITH IV CONTRAST DATE: 10/08/2014 COMPARISON: None HISTORY: Right lower quadrant pain, multi site abdominal pain, bilateral flank pain, currently being treated for prostatitis history of diabeteshiatal hernia and appendectomy TECHNIQUE: CT of the abdomen and pelvis was performed with IV contrast.100 mL of Omnipaque 350 was instilled intravenously through the left wrist.Nooral contrast was administered. FINDINGS: Images of the lung bases demonstrate a few calcified granulomata withinthe left lung base. The liver, pancreas, adrenal glands, and gallbladder demonstrate an unremarkable postcontrast CT appearance. Multiple calcifications withinthe spleen are noted, compatible with prior granulomatous disease. Kidneys demonstrate unremarkable postcontrast enhancement. Bladder is moderately distended with fluid and appears otherwise unremarkable. Renal collecting system is not significantly dilated. Small hiatal hernia is present. Aorta demonstrates normal course andcaliber with mild - moderate atherosclerotic disease. Scattered diverticulosis ofthe sigmoid colon is noted without evidence of surrounding inflammatorychanges to suggest diverticulitis. There is no evidence of bowel obstruction. Mild- moderate osteoarthritic changes of the spine are noted. Mild wedgedeformity along the superior endplate of L1 is noted. IMPRESSION: 1. No evidence of bowel obstruction. 2. Diverticulosis without evidence of diverticulitis. 3. Small hiatal hernia. 4. Mild wedge deformity along the superior endplate of L1, suggestive ofa compression fracture of uncertain chronicity. THIS IS AN ELECTRONICALLY VERIFIED REPORT 10/08/2014 3:01 PM: Everardo Mackay M.D. Everardo Mackay M.D. AT:at 03:01 PM 03:01 PM [facility] [EOD] Poly Butron NP IMG CT PROCEDURES Final Res ult from Last 3 Months or Most Recently Relevant to Health Maintenance Insurance [facility] MEDICARE Care Teams Environmental Health Specialist Relationship Specialty Start Date End Date Unknown, Notinfile PCP - General 05/02/22
--- OUTSIDE RECORDS SUMMARY | 2025-02-08 00:59 | XMS_ITS | Encounter Summary ---
Author Organization [facility] Address [address] [place] [address] Care Team Providers Care Honey Processor Name Role Phone Osmin Mares MD Primary Care Provider [phone] Encounter Details Date Type Department Care Team (Late st Contact Info) Description 11/08/2021 Vizibility Message Fredy [facility] [place] [address] [facility]. [facility] [address] [place] [address] Completed Intake Form Social History Tobacco Use Types Packs/Day Years [...] suspected to have Coronavirus/COVID-19? No / Unsure 10/25/2021 10:24 AM CDT documented as of this encounter [...] Description 07/19/2025 10:20 AM CDT Office Visit [facility] Multispecialty Care - [address] [place] [address] Osmin Mares MD [address] [facility] [address] [place] [address] documented as of this encounter Visit Diagnoses Not on filedocumented in this encounter Additional Health Concerns Assessment Noted Time PHQ-9 Depression Total Score: 0 05/31/19 22 12:27 PM CDT documented as of this encounter Care Teams Honey Processor Relationship Specialty Start Date End Date Osmin Mares MD [address] [address] PCP - General INTERNAL MEDICINE 10/30/20 documented as of this encounter
--- OUTSIDE RECORDS SUMMARY | 2025-02-08 00:59 | XMS_ITS | Encounter Summary ---
Author Organization [facility] Address [address] [place] [address] Care Team Providers Care Cook Helper Preserves Name Role Phone Osmin Mares MD Primary Care Provider [phone] Encounter Details Date Type Department Care Team (Latest Contact Info) Description 12/03/2021 MyChart Message Enc [facility] Medical Group Multispecialty Care - [place] [address] [address] [address] [place] [address] Osmin Mares MD [address] [place] [address] [address] [place] [address] medication refill Social History Tobacco Use Types Packs/Day [...] suspected to have Coronavirus/COVID-19? No / Unsure 12/03/2021 11:03 AM CDT documented as of this encounter [...] of Assessment Author Status No Risk Indicated 12/03/2021 4:20 PM CDT Osmin Mares MD Active * [place] Suicide Severity Rating Scale (Screener/Recent Self-Report) Question Answer Date of Assessment Author Status 1. Wish to be (Past 1 Month) No 12/03/2021 4:20 PM Osmin Yang MD Active 2. Non-Specific Active Suici amanda Thoughts (Past 1 Month) No 12/03/2021 4:20 PM Osmin Yang MD Active 6. Suicidal Behavior (Lifetime) No 12/03/2021 4:20 PM CDT Osmin Mares MD Active documented as of this encounter [...] Description 07/19/2025 10:20 AM CDT Office Visit [facility] Medical Group Multispecialty Care - [place] [address] [address] [address] [place] [address] Osmin Mares MD [address] [place] [address] [id number] documented as of this encounter Visit Diagnoses Not on filedocumented in this encounter Additional Health Concerns Assessment Noted Time PHQ-9 Depression Total Score: 0 05/31/19 22 12:27 PM CDT documented as of this encounter Care Teams Cook Helper Preserves Relationship Specialty Start Date End Date Osmin Mares MD [address] [place] [phone] PCP - General INTERNAL MEDICINE 10/30/20 documented as of this encounter
--- OUTSIDE RECORDS SUMMARY | 2025-02-08 00:59 | XMS_ITS | Encounter Summary ---
Author Organization [facility] Address [address] [place] [address] Care Team Providers Care Cyber Reverse Engineer Name Role Phone Osmin Mares MD Primary Care Provider [phone] Encounter Details Date Type Department Care Team (Late st Contact Info) Description 11/22/2020 MyCMelophonet Message Enc [facility] - [address] [place] [address] Eliezer Majano MD [address] [place] [address] Other Social History Tobacco Use Types Packs/Day [...] have Coronavirus / COVID-19? No / Unsure 11/16/2020 3:00 PM CDT documented as of this encounter [...] documented in this encounter Progress Notes * Sun Lozoya MA - 11/22/2020 1:45 PM CDT FYI documented in this encounter Plan of Treatment Upcoming Encounters Date Type Department Care Team (Late st Contact Info) Description 07/19/2025 10:20 AM CDT Office Visit [facility] Medical Group Multispecialty Care - [place] [address] [address] [address] [place] [address] Osmin Mares MD [address] [address] documented as of this encounter Visit Diagnoses Not on filedocumented in this encounter Additional Health Concerns Assessment Noted Time PHQ-9 Depression Total Score: 2 10/31/19 21 2:57 PM CDT documented as of this encounter Care Teams Cyber Reverse Engineer Relationship Specialty Start Date End Date Osmin Mares MD [address] [place] [address] PCP - General INTERNAL MEDICINE 10/30/20 documented as of this encounter
--- OUTSIDE RECORDS SUMMARY | 2025-02-08 00:59 | XMS_ITS | Encounter Summary ---
Author Organization [facility] Address [address] [place] [address] Care Team Providers Care Center Receptionist Name Role Phone Osmin Mares MD Primary Care Provider Encounter Details Date Type Department Care Team (Latest Contact Info) Description 03/11/2024 Perfectoret Message Enc [facility] Medical Group Multispecialty Care - [address] [place] [address] Latasha Hester, Medication refill Social History Tobacco Use Types Packs/Day [...] Description 07/19/2025 10:20 AM CDT Office Visit [facility] Medical Group Multispecialty Care - [place] [address] [address] [address] [place] [address] Osmin Mares MD [address] [place] [address] documented as of this encounter Visit Diagnoses Not on filedocumented in this encounter Additional Health Concerns Assessment Noted Time PHQ-9 Depression Total Score: 0 05/31/19 22 12:27 PM CDT documented as of this encounter Care Teams Center Receptionist Relationship Specialty Start Date End Date Osmin Mares MD [address] [address] PCP - General INTERNAL MEDICINE 10/30/20 documented as of this encounter
--- OUTSIDE RECORDS SUMMARY | 2025-02-08 00:59 | XMS_ITS | Encounter Summary ---
Author Organization [facility] Address [address] [place] [address] Care Team Providers Care Cloth Seconds Sorter Name Role Phone Magan Canada MD Primary Care Provider [phone] Osmin Mares MD Primary Care Provider [phone] Encounter Details Date Type Department Care Team (Late st Contact Info) Description 10/23/2020 MyChart Message Enc [facility] Medical Group Multispecialty Care - [facility] [address] [facility] [place] [address] Eliezer Majano MD [address] [facility] [address] [place], [place] [phone] RE: Question Social History Tobacco Use Types Packs/Day Years [...] Description 07/19/2025 10:20 AM CDT Office Visit [facility] Medical Group Multispecialty Care - [place] [address] [address] [address] [place] [address] Osmin Mares MD [address] [place] [address] [place] [address] documented as of this encounter Visit Diagnoses Not on filedocumented in this encounter Care Teams Cloth Seconds Sorter Relationship Specialty Start Date End Date Magan Canada MD [address] [place] [phone] PCP - General INTERNAL MEDICINE 08/29/20 10/29/20 Osmin Mares MD [address] [address] PCP - General INTERNAL MEDICINE 10/30/20 documented as of this encounter
--- OUTSIDE RECORDS SUMMARY | 2025-02-08 00:59 | XMS_ITS | Encounter Summary ---
Author Organization [facility] Address [address] [place] [address] Care Team Providers Care Manager Engagement Name Role Phone Osmin Mares MD Primary Care Provider [phone] Encounter Details Date Type Department Care Team (Latest Contact Info) Description 07/11/[address] [facility] Medical Group Multispecialty Care - [place] [address] [address] [address] [place] [address] Osmin Mares MD [address] [place] [address] 157 [place] [address] Covid Vaccination Records Social History Tobacco Use Types Packs/Day Years [...] PM CDT Caitlin Castañeda RN Active documented in this encounter Plan of Treatment Upcoming Encounters Date Type Department Care Team (Late st Contact Info) Description 07/19/2025 10:20 AM CDT Office Visit [facility] Medical Group Multispecialty Care - [place] [address] [address] [address] [place] [address] [place] [address] [place] [address] 157 [place] [address] documented as of this encounter Visit Diagnoses Not on filedocumented in this encounter Additional Health Concerns Assessment Noted Time PHQ-9 Depression Total Score: 0 05/31/19 22 12:27 PM CDT documented as of this encounter Care Teams Manager Engagement Relationship Specialty Start Date End Date Osmin Mares MD [address] [address] PCP - General INTERNAL MEDICINE 10/30/20 documented as of this encounter
--- OUTSIDE RECORDS SUMMARY | 2025-02-08 00:59 | XMS_ITS | Encounter Summary ---
Author Organization [facility] Address [address] [place] [address] Care Team Providers Care Parts Classifier Name Role Phone Osmin Mares MD Primary Care Provider [phone] Encounter Details Date Type Department Care Team (Late st Contact Info) Description 08/14/2021 [employer] Message Enc [facility] Medical Group Multispecialty Care - [address] [place] [address] Direct Sit[facility]dariel[facility], [facility] Provider CPAP Social History Tobacco Use Types Packs/Day Years [...] In the last 10 days, have peg u been in contact with someone who was confirmed or suspected to have Coronavirus/COVID-19? No / Unsure 08/17/2021 3:07 PM CDT documented as of this encounter [...] Visit [facility] Medical Group Multispecialty Care - [place] [address] [address] [address] [place] [address] Osmin Mares MD [address] [place] [address] documented as of this encounter Visit Diagnoses Not on filedocumented in this encounter Additional Health Concerns Assessment Noted Time PHQ-9 Depression Total Score: 0 05/31/19 22 12:27 PM CDT documented as of this encounter Care Teams Parts Classifier Relationship Specialty Start Date End Date Osmin Mares MD [facility] [address] [address] PCP - General INTERNAL MEDICINE 10/30/20 documented as of this encounter
--- OUTSIDE RECORDS SUMMARY | 2025-02-08 00:59 | XMS_ITS | Encounter Summary ---
Author Organization [facility] Address [address] [place] [address] Care Team Providers Care Chipper Feeder Name Role Phone Magan Canada MD Primary Care Provider [phone] Osmin Mares MD Primary Care Provider [phone] Encounter Details Date Type Department Care Team (Latest Contact Info) Description 10/14/2020 Adapt[employer] Message Enc [facility] [address] [place] [address] David Bennett MD,PHD RE: Follow Up/Update Social History Tobacco Use [...] have Coronavirus / COVID-19? No / Unsure 10/08/2020 6:21 PM CDT documented as of this encounter [...] Progress Notes * David Bennett MD,PHD - 10/16/2020 3:52 PM CDT BP looks good * Katy Marinelli RN - 10/16/2020 8:40 AM CDT Please advise. documented in this encounter Plan of Treatment Upcoming Encounters Date Type Department Care Team (Late st Contact Info) Description 07/19/2025 10:20 AM CDT Office Visit [facility] Medical Group Multispecialty Care - [place] [address] [address] [address] [place] [address] Osmin Mares MD 1188 [facility] [address] [place] [address] documented as of this encounter Visit Diagnoses Not on filedocumented in this encounter Care Teams Chipper Feeder Relationship Specialty Start Date End Date Magan Canada MD [address] [place] [phone] PCP - General INTERNAL MEDICINE 08/29/20 10/29/20 Osmin Mares MD [address] [address] PCP - General INTERNAL MEDICINE 10/30/20 documented as of this encounter
--- OUTSIDE RECORDS SUMMARY | 2025-02-08 00:59 | XMS_ITS | Encounter Summary ---
Author Organization [facility] Address [address] [place] [address] Care Team Providers Care Sales And Events Coordinator Name Role Phone Osmin Mares MD Primary Care Provider [phone] Encounter Details Date Type Department Care Team (Latest Contact Info) Description 12/26/2021 [employer] Message Enc [facility] [place] [address] [facility] [address] [place] [address] David Bennett MD,PHD Cardiac MRI and Sternotomy Wires Social History Tobacco Use Types Packs/Day Years [...] suspected to have Coronavirus/COVID-19? No / Unsure 12/21/2021 2:54 PM CDT documented as of this encounter [...] Progress Notes * David Bennett MD,PHD - 12/26/2021 8:37 PM CDT The sternal wires should not be an issue. Best to check with MRI center at [place] * Katy Marinelli RN - 12/26/2021 11:29 AM CDT They shouldn't correct? documented in this encounter Plan of Treatment Upcoming Encounters Date Type Department Care Team (Late st Contact Info) Description 07/19/2025 10:20 AM CDT Office Visit [facility] Medical [facility] Multispecialty [facility] - [place] [address] [address] [address] [place] [address] Osmin Mares MD [address] [place] [address] documented as of this encounter Visit Diagnoses Not on filedocumented in this encounter Additional Health Concerns Assessment Noted Time PHQ-9 Depression Total Score: 0 05/31/19 22 12:27 PM CDT documented as of this encounter Care Teams Sales And Events Coordinator Relationship Specialty Start Date End Date Osmin Mares MD [address] [place] [address] PCP - General INTERNAL MEDICINE 10/30/20 documented as of this encounter
--- OUTSIDE RECORDS SUMMARY | 2025-02-08 00:59 | XMS_ITS | Encounter Summary ---
Author Organization [facility] Address [address] [place] [address] Care Team Providers Care Rn Transitional Name Role Phone Osmin Mares MD Primary Care Provider [phone] Encounter Details Date Type Department Care Team (Latest Contact Info) Description 10/31/2020 MyChart Message Enc [facility] Medical Group Multispecialty Care - [place] [address] [address] [address] [place] [address] Osmin Mares MD [address] [place] [address] [address] [place] [address] Medication Questions Social History Tobacco Use Types [...] have Coronavirus / COVID-19? No / Unsure 10/30/2020 8:02 AM CDT documented as of this encounter [...] [facility] - [place] [address] [address] [place] [address] Osmin Mares MD [address] [place] [address] documented as of this encounter Visit Diagnoses Not on filedocumented in this encounter Additional Health Concerns Assessment Noted Time PHQ-9 Depression Total Score: 2 10/31/19 21 2:57 PM CDT documented as of this encounter Care Teams Rn Transitional Relationship Specialty Start Date End Date Osmin Mares MD [address] [address] PCP - General INTERNAL MEDICINE 10/30/20 documented as of this encounter
--- OUTSIDE RECORDS SUMMARY | 2025-02-08 00:59 | XMS_ITS | Encounter Summary ---
Author Organization [facility] Address [address] [place] [address] Care Team Providers Care Closing Machine Operator Name Role Phone Osmin Mares MD Primary Care Provider [phone] Encounter Details Date Type Department Care Team (Latest Contact Info) Description 12/04/2023 MyChart Message Enc [facility] Medical Group Multispecialty Care - [place] [address] [address] [address] [place] [address] Osmin Mares MD [address] [place] [address] [address] [place] [address] Flu Vaccine Update Social History Tobacco Use Types [...] MEDICAL CENTER Medical Group Multispecialty Care - [place] [address] [address] [address] [place] [address] [place] [address] [place] [address] [address] [place] [address] documented as of this encounter Visit Diagnoses Not on filedocumented in this encounter Additional Health Concerns Assessment Noted Time PHQ-9 Depression Total Score: 0 03/23/20 22 12:27 PM CDT documented as of this encounter Care Teams Closing Machine Operator Relationship Specialty Start Date End Date Osmin Mares MD [address] [address] PCP - General INTERNAL MEDICINE 10/30/20 documented as of this encounter
--- OUTSIDE RECORDS SUMMARY | 2025-02-08 00:59 | XMS_ITS | Encounter Summary ---
Author Organization [facility] Address [address] [place] [address] Care Team Providers Care First Assist Name Role Phone Osmin Mares MD Primary Care Provider [phone] Encounter Details Date Type Department Care Team (Latest Contact Info) Description 12/21/2021 Aveillanthart Message Enc [facility] Medical Group Multispecialty Care - [place] [address] [address] [address] [place] [address] Osmin Mares MD [address] [place] [address] [address] [place] [address] MyChart Notice on Medications Social History Tobacco Use Types Packs/Day Years [...] Description 07/19/2025 10:20 AM CDT Office Visit [facility] Medical Group Multispecialty Care - [address] [place] [address] Osmin Mares MD [address] [address] documented as of this encounter Visit Diagnoses Not on filedocumented in this encounter Additional Health Concerns Assessment Noted Time PHQ-9 Depression Total Score: 0 05/31/19 22 12:27 PM CDT documented as of this encounter Care Teams First Assist Relationship Specialty Start Date End Date Osmin Mares MD [address] [address] PCP - General INTERNAL MEDICINE 10/30/20 documented as of this encounter
--- OUTSIDE RECORDS SUMMARY | 2025-02-08 00:59 | XMS_ITS | Encounter Summary ---
Author Organization [facility] Address [address] [place] [address] Care Team Providers Care Bag Presser Name Role Phone Osmin Mares MD Primary Care Provider [phone] Encounter Details Date Type Department Care Team (Late st Contact Info) Description 02/28/2023 MyCInfoharmonit Message Enc [facility] Medical Group Multispecialty Care - [place] [address] [address] [address] [place] [address] Osmin Mares MD [address] [place] [address] [address] [place] [address] COVID Social History Tobacco Use Types Packs/Day Years [...] [facility] Multispecialty Care - [place] [address] [address] [address] [place] [address] [place] [address] [place] [address] [address] [place] [address] documented as of this encounter Visit Diagnoses Not on filedocumented in this encounter Additional Health Concerns Assessment Noted Time PHQ-9 Depression Total Score: 0 03/23/20 22 12:27 PM CDT documented as of this encounter Care Teams Bag Presser Relationship Specialty Start Date End Date Osmin Mares MD [address] [address] PCP - General INTERNAL MEDICINE 10/30/20 documented as of this encounter
--- OUTSIDE RECORDS SUMMARY | 2025-02-08 00:59 | XMS_ITS | Encounter Summary ---
Author Organization [facility] Address [address] [place] [address] Care Team Providers Care Airline Reservationist Name Role Phone Osmin Mares MD Primary Care Provider [phone] Encounter Details Date Type Department Care Team (Late st Contact Info) Description 08/26/2023 MyChart Message Enc [facility] Medical Group Multispecialty Care - [place] [address] [address] [address] [place] [address] Osmin Mares MD [address] [place] [address] [address] [place] [address] RSV Vaccination Social History Tobacco Use Types Packs/Day [...] [facility] Mult[facility] Care - [place] [address] [address] [place] [address] [place] [address] [place] [address] documented as of this encounter Visit Diagnoses Not on filedocumented in this encounter Additional Health Concerns Assessment Noted Time PHQ-9 Depression Total Score: 0 03/23/20 22 12:27 PM CDT documented as of this encounter Care Teams Airline Reservationist Relationship Specialty Start Date End Date Osmin Mares MD [address] [address] PCP - General INTERNAL MEDICINE 10/30/20 documented as of this encounter
--- OUTSIDE RECORDS SUMMARY | 2025-02-08 00:59 | XMS_ITS | Encounter Summary ---
Author Organization [facility] Address [address] [place] [address] Care Team Providers Care Hooker Operator Name Role Phone Osmin Mares MD Primary Care Provider [phone] Encounter Details Date Type Department Care Team (Latest Contact Info) Description 05/29/2021 Widgetlabst Message Enc [facility] Medical Group Multispecialty Care - [place] [address] [address] [place] [address] Osmin Mares MD [address] [place] [address] [address] [place] [address] Notes for Discussion at May 30 2021 Follow up visit Social History Tobacco Use Types Packs/Day Years [...] of Assessment Author Status No Risk Indicated 05/30/2021 12:27 PM CDT Osmin Mares MD Active * [place] Suicide Severity Rating Scale (Screener/Recent Self-Report) Question Answer Date of Assessment Author Status 1. Wish to be (Past 1 Month) No 05/30/2021 12:27 PM LIBBYT Osmin Mares MD Active 2. Non-Specific Active Suicidal Thoughts (Past 1 Month) No 05/30/2021 12:27 PM Osmin Yang MD Active 6. Suicidal Behavior (Lifetime) No 05/30/2021 12:27 PM CDT Osmin Mares MD Active documented [...] Visit [facility] Medical Group Multispecialty Care - [place] [address] [address] [place] [address] Osmin Mares MD [address] [place] [phone] documented as of this encounter Visit Diagnoses Not on filedocumented in this encounter Additional Health Concerns Assessment Noted Time PHQ-9 Depression Total Score: 0 04/25/19 22 10:25 AM BARREL POLISHER documented as of this encounter Care Teams Hooker Operator Relationship Specialty Start Date End Date Osmin Mares MD [address] [place] [id number] PCP - General INTERNAL MEDICINE 10/30/20 documented as of this encounter
--- OUTSIDE RECORDS SUMMARY | 2025-02-08 00:59 | XMS_ITS | Encounter Summary ---
Author Organization [facility] Address [address] [place] [address] Care Team Providers Care Senior Cyber Intelligence Analyst Name Role Phone Osmin Mares MD Primary Care Provider [phone] Encounter Details Date Type Department Care Team (Latest Contact Info) Description 10/30/2020 [employer] Message Enc [facility] [address] [place] [address] David Bennett MD,PHD RE: Follow [...] Description 07/19/2025 10:20 AM CDT Office Visit [facility] Medical Group Multispecialty Care - [place] [address] [address] [place] [address] [place] [address] [place] [address] [address] [place] [address] documented as of this encounter Visit Diagnoses Not on filedocumented in this encounter Additional Health Concerns Assessment Noted Time PHQ-9 Depression Total Score: 2 10/31/19 21 2:57 PM CDT documented as of this encounter Care Teams Senior Cyber Intelligence Analyst Relationship Specialty Start Date End Date Osmin Mares MD [address] [address] PCP - General INTERNAL MEDICINE 10/30/20 documented as of this encounter
[2025-02-08 11:33] VITALS: BP 118/72; PULSE 100; RESP 16; TEMP 36.4; O2SAT 98; BMI 34.4
[2025-02-08] MEDS: LACTATED RINGERS 1,000 ML 150 ML IV CONT (11:45)
--- NOTE | 2025-02-08 11:53 | WPDANESEPPF ---
Anes - Initial Pre Proc Eval Procedure: Operation Date: 02/08/25 12:30 Proposed Procedures p Screening Colonoscopy - Indio Cazares MD Date/Time: 02/08/25 11:53 Surgeon: Indio Cazares MD Pre Op Diagnosis: Screening Patient Data Age: 70 Gender: M Height: 1.78 m Weight: 108.9 kg Last Vital Signs Temp 36.4 C 02/08/25 11:33 Pulse 100 02/08/25 11:33 Resp 16 02/08/25 11:33 BP 118/72 02/08/25 11:33 Pulse Ox 98 02/08/25 11:33 O2 Del Method Room Air 02/08/25 11:33 Allergies Allergy/AdvReac Type Severity Reaction Status Date / Time Sulfa (Sulfonamide AdvReac Intermediate Fever Verified 02/08/25 11:32 Antibiotics) Home Medications ?Medication ?Instructions ?Recorded ?Confirmed ?Type aspirin 81 mg chewable tablet 81 mg PO DAILY 12/27/21 02/08/25 History metformin 500 mg tablet 1,000 mg PO BID 12/27/21 02/08/25 History metoprolol succinate 25 mg 25 mg PO DAILY 12/27/21 02/08/25 History tablet,extended release 24 hr rosuvastatin 40 mg tablet 40 mg PO DAILY 12/27/21 02/08/25 History dapagliflozin propanediol 10 mg 10 mg PO DAILY 01/26/23 02/08/25 History tablet (Farxiga) nitroglycerin 0.4 mg sublingual 0.4 mg sublingual PRN PRN Chest 01/26/23 01/20/25 History tablet Pain evolocumab 140 mg/mL subcutaneous 140 mg subcut ONCE 01/20/25 01/20/25 History pen injector (Repatha SureClick) Laboratory Tests 02/08/25 11:38 POC Capillary Glucose 112 H mg/dl (65-105) Patient hx anesthesia problems: none Family hx anesthesia problems: none Results Review: All pre-operative results and documents have been reviewed as part of the pre-operative evaluation. [facility] Past Medical History Medical History (Updated 02/07/25 @ 15:08 by Cabrera Hernandez DO) Diabetes type 2, controlled Hyperlipidemia Hypertension Surgical History Surgical History (Updated 02/07/25 @ 15:08 by Cabrera Hernandez DO) Hx of CABG 2021 Social History Social History Smoking status: Former smoker Tobacco type: pipe Alcohol intake: current Substance use: never Substance use type: does not use Living arrangements: with family Spiritual care concerns: No Anes - Eval Final PreProcedure Day of Procedure 02/08/25 11:53 Patient weight: obese Heart: regular rate and rhythm Lungs: clear to auscultation Airway: Mallampati scale class II Neurological: alert and oriented Last oral intake: >/= 8 hours ASA classification: III Emergent: no Anesthetic plan: proceed Anesthesia type and monitoring: general GIVS and standard monitoring Results Review: All pre-operative results and documents have been reviewed as part of the pre-operative evaluation. Informed Consent: The patient's anesthetic plan and its attendant risks and benefits were discussed with the patient/family/POA. Questions were solicited and answers provided to the satisfaction of the patient/family/POA.
--- NOTE | 2025-02-08 12:02 | PM.IMHP2 ---
H&P: HPI History of Present Illness Date/Time: 02/08/25 12:02 Chief Complaint: History of colon polyps Narrative: The patient has a history of colonic polyps, the last colonoscopy was 5 years ago. Review of Systems Review of Systems: All systems reviewed & are unremarkable except as noted in HPI and below [facility] Past Medical History Medical History (Updated 02/08/25 @ 12:16 by Indio Cazares MD) Diabetes type 2, controlled Hyperlipidemia Hypertension Surgical History Surgical History (Updated 02/07/25 @ 15:08 by Cabrera Hernandez DO) Hx of CABG 2020 Social History Social History Smoking status: Former smoker Tobacco type: pipe Alcohol intake: current Substance use: never Substance use type: does not use Living arrangements: with family Spiritual care concerns: No Meds Home Medications and Allergies Home Medications ?Medication ?Instructions ?Recorded ?Confirmed ?Type aspirin 81 mg chewable tablet 81 mg PO DAILY 12/27/21 02/08/25 History metformin 500 mg tablet 1,000 mg PO BID 12/27/21 02/08/25 History metoprolol succinate 25 mg 25 mg PO DAILY 12/27/21 02/08/25 History tablet,extended release 24 hr rosuvastatin 40 mg tablet 40 mg PO DAILY 12/27/21 02/08/25 History dapagliflozin propanediol 10 mg 10 mg PO DAILY 01/26/23 02/08/25 History tablet (Farxiga) nitroglycerin 0.4 mg sublingual 0.4 mg sublingual PRN PRN Chest 01/26/23 01/20/25 History tablet Pain evolocumab 140 mg/mL subcutaneous 140 mg subcut ONCE 01/20/25 01/20/25 History pen injector (Repatha SureClick) Allergies Allergy/AdvReac Type Severity Reaction Status Date / Time Sulfa (Sulfonamide AdvReac Intermediate Fever Verified 02/08/25 11:32 Antibiotics) Vital Signs Vital Signs - 24 hr 02/08/25 11:33 Temperature 97.6 F Pulse Rate 100 Respiratory Rate 16 Blood Pressure 118/72 Pulse Oximetry 98 Oxygen Delivery Room Air Exam Const: General: cooperative and healthy appearing Resp: Effort & Inspection: normal respiratory effort and able to speak in complete sentences Auscultation: clear to auscultation bilaterally Cardio: Rate: regular rate Rhythm: regular rhythm GI: Inspection: normal to inspection GI Palp: No No hepatosplenomegaly present Auscultation: normal bowel sounds Rectal Exam: deferred Skin: General skin exam: normal color Psych: Appearance: grossly normal Mental Status: mental status grossly normal Assessment and Plan Assessment and plan (1) History of colonic polyps: Code(s): Z86.0100 - Personal history of colon polyps, unspecified Status: Acute Assessment and Plan: The patient is deemed a good candidate for the procedure. Consent signed. Will proceed.
[2025-02-08 12:17] VITALS: BP 115/69; PULSE 87; RESP 18; O2SAT 96
[2025-02-08 12:27] VITALS: BP 119/67; PULSE 84; RESP 18; O2SAT 95
[2025-02-08 12:37] VITALS: BP 117/72; PULSE 86; RESP 18; O2SAT 96
== END 2025-02-08 12:51 | disposition home or self-care (01) ==
PROVIDERS: PCP Internal Medicine; Referring Provider Internal Medicine; Visit Provider Internal Medicine Gastroenterology
PROC: 0DJD8ZZ Inspection of Lower Intestinal Tract, Via Natural or Artificial Opening Endoscopic (ICD-10-PCS; CPT 45378; principal; 2025-02-08 12:30)
DX: Z12.11 Encounter for screening for malignant neoplasm of colon (principal); K57.30 Diverticulosis of large intestine without perforation or abscess without bleeding; Z86.0100 Personal history of colon polyps, unspecified; E11.9 Type 2 diabetes mellitus without complications; Z87.891 Personal history of nicotine dependence
CPT/HCPCS: G0105; 82948; J2704; J7120